=== PATIENT | male | born 1985 | race Caucasian/White ===

== ENCOUNTER 2020-08-21 09:25 | Emergency (ER) | payer BC, SELFPAY ==
--- NOTE | ~2020-08-21 | XR_ITS ---
XR wrist RT 2V DATE: 08/21/2020 09:47 INDICATION: Laceration and sheath metal. Rule out foreign body TECHNIQUE: AP and lateral views COMPARISON: None FINDINGS: There is evidence of a soft tissue laceration along the medial aspect of the distal forearm ; there is no associated radiopaque foreign body. No fracture or dislocation, periosteal reaction or bone destruction. IMPRESSION: Distal forearm medial laceration; no radiopaque foreign body Reviewed, dictated and finalized at location B. CAL TECH
[2020-08-21 09:30] VITALS: BP 104/61; PULSE 96; RESP 20; TEMP 36.3; O2SAT 97
--- NOTE | 2020-08-21 09:37 | ED.GENADULT ---
HPI - General Adult General Chief complaint: Wound/Laceration Stated complaint: CUT HAND Source: patient Mode of arrival: ambulatory Limitations: no limitations History of Present Illness HPI narrative: Jacinto is a previously healthy 34M that presented to the ED with a laceration on his right wrist 1 hour prior. He was working with sheet metal when he had and accident and cut the medial side of his wrist. No paralysis or numbness reported. He had a tetanus booster last year. He has no other concerns. Related Data Home Medications Medication Instructions Recorded Confirmed No Home Medications 08/21/20 08/21/20 Allergies Allergy/AdvReac Type Severity Reaction Status Date / Time phenobarbital AdvReac Unknown Verified 08/21/20 10:19 Review of Systems Constitutional: Constitutional: Reports no additional constitutional complaints Eyes: Eyes: Reports no additional eye complaints ENT: Reports system reviewed and no additional complaints, except as documented Cardiovascular: Cardiovascular: Reports no additional cardiovascular complaints Respiratory: Respiratory: Reports no additional respiratory complaints Gastrointestinal: Gastrointestinal: Reports no additional gastrointestinal complaints Genitourinary: Genitourinary: Reports no additional male genitourinary complaints Musculoskeletal: Musculoskeletal: Reports no additional musculoskeletal complaints Integumentary/Breasts: Skin/Breast: Reports as per HPI Neurologic: Reports system reviewed and no additional complaints, except as documented Psychiatric: Psychiatric: Reports no additional psychiatric complaints Endocrine: Endocrine: Reports no additional endocrine complaints Hematologic/Lymphatic: Hematologic/Lymphatic: Reports no additional hematologic/lymphatic complaints Allergic/Immunologic: Allergic/Immunologic: Reports no additional allergic/immunologic complaints Exam Const: General: no acute distress and alert Orientation/consciousness: patient oriented x3 Limitations: No altered mental status HENMT: Head: normal to inspection Other: atraumatic Eyes: Conjunctivae: conjunctivae normal Pupils: Equal, round and reactive pupils present Neck: Neck: normal visual inspection Chest: Chest palpation & inspection: normal inspection of the chest Resp: Effort & Inspection: normal respiratory effort Auscultation: clear to auscultation bilaterally Cardio: Rate: regular rate Skin: General skin exam: normal color Rashes: no rashes Other: 3 cm L-shaped laceration on the medial side of the right wrist into the sub cutaneous tissue Neuro: General: patient oriented x3 and moves all extremities Other: Has sensation and is able to move his hand and all digits Extrem: General: normal to inspection Other: normal capillary refill in the right hands Psych: Mental Status: mental status grossly normal Course Course Emergency Course: Jacinto was evaluated and given toradol for the pain. XR wrist RT 2V DATE: 08/21/2020 09:47 INDICATION: Laceration and sheath metal. Rule out foreign body TECHNIQUE: AP and lateral views COMPARISON: None FINDINGS: There is evidence of a soft tissue laceration along the medial aspect of the distal forearm; there is no associated radiopaque foreign body. No fracture or dislocation, periosteal reaction or bone destruction. IMPRESSION: Distal forearm medial laceration; no radiopaque foreign body laceration repaired as below. Vital Signs Vital signs: Vital Signs Temperature 97.3 F L 08/21/20 09:30 Pulse Rate 96 08/21/20 09:30 Respiratory Rate 20 08/21/20 09:30 Blood Pressure 104/61 08/21/20 09:30 Pulse Oximetry 97 08/21/20 09:30 Temperature 97.3 F L 08/21/20 09:30 Pulse Rate 96 08/21/20 09:30 Respiratory Rate 20 08/21/20 09:30 Blood Pressure 104/61 08/21/20 09:30 Pulse Oximetry 97 08/21/20 09:30 Procedures Laceration Laceration 1: Date: 08/21/20 Time: 10:08
== END 2020-08-21 10:30 | disposition home or self-care (01) ==
PROVIDERS: Emergency Provider Family Medicine; PCP Internal Medicine
DX: S61.511A Laceration without foreign body of right wrist, initial encounter (principal); W45.8XXA Other foreign body or object entering through skin, initial encounter
CPT/HCPCS: 12002; 73100; 99282; 99283

== ENCOUNTER 2021-06-02 20:48 | Emergency (ER) | payer BC, SELFPAY ==
--- NOTE | ~2021-06-02 | CT_ITS ---
EXAMINATION: CT abdomen pelvis w con EXAM DATE: 06/03/2021 00:32 INDICATION: Left lower quadrant pain. TECHNIQUE: Spiral CT of the abdomen and pelvis was performed following intravenous injection of 100 m L Omnipaque 350. Axial, coronal and sagittal images of the abdomen and pelvis were reviewed. The do se-length product (DLP) for this examination was 599.04 mGy-cm. The exposure was tailored according to patient size (auto mA exposure control), and iterative reconstruction (ASIR) was used as additiona l dose reduction technique. There is no prior study for comparison. FINDINGS: The liver, spleen, adrenal glands and pancreas are unremarkable. Gallbladder is unremarkab le. No biliary obstruction. Portal and splenic veins are patent. Kidneys enhance symmetrically. T here is no hydronephrosis. The prostate is unremarkable. The bladder is unremarkable. There is no retroperitoneal or pelvic lymphadenopathy. Scattered colonic diverticulosis. Moderate amount of inflammation along the descending colon, appeara nce consistent with acute uncomplicated diverticulitis. The appendix is normal. The stomach and smal l bowel are unremarkable. There is expected amount of colonic stool. No free intraperitoneal gas. The heart is normal in size. There are no pericardial or pleural effusions. The lung bases are un remarkable. There are no osteoblastic or osteolytic lesions identified. There is right femoral intra medullary landy. IMPRESSION: Acute uncomplicated descending colonic diverticulitis. Reviewed, dictated and finalized at location D.
[2021-06-02 21:06] VITALS: BP 125/63; PULSE 97; RESP 18; TEMP 37.7; O2SAT 98
[2021-06-02 21:19] LABS: Basophils Percent Auto 0.3 % (0.2-1.2); Hemoglobin 14.4 g/dL (14.0-18.0); Immature Granulocyte Absolute 0.02 K/mm3 (0.00-0.031); Immature Granulocyte Percent A 0.3 % (0-0.5); Lymphocytes Absolute Auto 0.84 K/mm3 (0.9-3.2); Lymphocytes Percent Auto 10.5 % (18.3-44.2); Mean Corpuscular HGB Conc 35.1 g/dl (32-36); Mean Corpuscular Hemoglobin 31.2 pg (26-34); Mean Corpuscular Volume 88.9 fl (80-100); Monocytes Percent Auto 12.1 % (2.6-8.5); Neutrophils Absolute Auto 6.1 K/mm3 (1.3-6.7); Neutrophils Percent Auto 76.8 % (45.5-73.1); Platelet Count Result 193 k/mm3 (150-375); Red Blood Count 4.61 M/mm3 (4.6-6.20); Red Cell Distribution Width 12.2 % (11.5-14.5)
[2021-06-02 21:28] LABS: Alanine Aminotransferase 21 U/L (4-50); Albumin Level 4.4 g/dL (3.5-5.1); Alkaline Phosphatase 69 U/L (38-126); Anion Gap 11 mmol/L (8-16); Aspartate Amino Transferase 28 U/L (17-59); Bilirubin,Total 0.6 mg/dL (0.2-1.3); Blood Urea Nitrogen 9 mg/dL (9-20); Calcium 8.7 mg/dL (8.4-10.2); Carbon Dioxide 23 mmol/L (22-30); Chloride 98 mmol/L (98-107); Estimated CRCL calculation 109 ml/min; Estimated Glomerular Filt Rate > 60; Glucose 123 mg/dL (65-110); Lipase 40 U/L (23-300); Potassium 3.6 mmol/L (3.4-5.0); Sodium 132 mmol/L (137-145)
[2021-06-03 00:28] VITALS: BP 125/57; PULSE 77; RESP 18; TEMP 37.7; O2SAT 100
[2021-06-03] MEDS: SODIUM CHLORIDE 0.9% IV 1,000 ML 999 ML IV CONT (00:32)
[2021-06-03] MEDS: KETOROLAC 30 MG/ML VIAL (*BKC) IV PUSH (00:32)
[2021-06-03] MEDS: metroNIDAZOLE 250 MG TABLET 500 MG PO (01:01)
[2021-06-03] MEDS: CIPROFLOXACIN 500 MG TAB PO (01:01)
--- NOTE | 2021-06-03 01:13 | ED.ABDPAIN ---
HPI - Abdominal Pain General Chief Complaint: Abdominal Pain Stated Complaint: lower abdominal pain on Left side Time Seen by Provider: 06/02/21 23:20 History of Present Illness HPI narrative: Patient is a 35-year-old male who presents ER with left-sided abdominal pain. Ongoing for 24 hours. Increasing in discomfort. Developed subjective fevers today. Radiates into his left lower quadrant into his left flank. No urinary frequency or urgency or dysuria. Reports he felt like he was constipated and took MiraLAX which then resulted in diarrhea. Has not had similar symptoms previously. No reported alleviating factors. Review of Systems Review of Systems: All systems reviewed & are unremarkable except as noted in HPI and below Constitutional: Constitutional: Denies chills, Reports fatigue and Reports fever(s) ENT: Denies nasal congestion and Denies sore throat Cardiovascular: Cardiovascular: Denies chest pain, Denies rapid heart rate and Denies radiating jaw, neck or arm pain Respiratory: Respiratory: Denies cough, Denies dyspnea and Denies wheezing Gastrointestinal: Gastrointestinal: Reports abdominal pain, Reports constipation, Reports diarrhea, Denies nausea and Denies vomiting Genitourinary: Genitourinary: Denies dysuria and Denies urinary frequency PMFSH Past Medical History Medical History (Updated 06/03/21 @ 01:18 by Baldo Pina MD) Healthy adult Surgical History Surgical History (Updated 06/03/21 @ 01:18 by Baldo Pina MD) No pertinent past surgical history Social History Social History (Updated 06/03/21 @ 01:18 by Baldo Pina MD) Smoking status: Never smoker Exam Narrative: GENERAL: Well-appearing, well-nourished, and in no acute distress. HEAD: Normocephalic, atraumatic. CHEST: Clear to auscultation. No respiratory distress. HEART: Regular rate and rhythm. Normal peripheral pulses. ABDOMEN: Soft, moderate tenderness left lower quadrant, nondistended, normal active bowel sounds. Mild left CVA tenderness. EXTREMITIES: Normal range of motion. No edema. SKIN: Warm, dry, no rash. NEURO: Alert and oriented x3. PSYCH: Normal mood and affect. Course Course Emergency Course: Patient informed of diagnosis and treatment plan. Received first dose of antibiotic while in the ER. Will give a work note. Recommend follow-up with PCP. Discussed return precautions. Vital Signs Vital signs: Vital Signs Temperature 100 F H 06/02/21 21:06 Pulse Rate 97 06/02/21 21:06 Respiratory Rate 18 06/02/21 21:06 Blood Pressure 125/63 06/02/21 21:06 Pulse Oximetry 98 06/02/21 21:06 Temperature 100 F H 06/03/21 00:28 Pulse Rate 77 06/03/21 00:28 Respiratory Rate 18 06/03/21 00:28 Blood Pressure 125/57 L 06/03/21 00:28 Pulse Oximetry 100 06/03/21 00:28 MDM - Abdominal Pain Lab Data Result diagrams: 06/02/21 21:12 06/02/21 21:12 Labs: Lab Results 06/02/21 06/02/21 Range/Units 21:12 21:12 WBC 8.0 (4.5-10.0) K/mm3 RBC 4.61 (4.6-6.20) M/mm3 Hgb 14.4 (14.0-18.0) g/dL Hct 41.0 L (42.0-52.0) % MCV 88.9 (80-100) fl MCH 31.2 (26-34) pg MCHC 35.1 (32-36) g/dl RDW 12.2 (11.5-14.5) % Plt Count 193 (150-375) k/mm3 MPV 9.0 (7.4-10.4) fl Immature Gran % (Auto) 0.3 (0-0.5) % Neut % (Auto) 76.8 H (45.5-73.1) % Lymph % (Auto) 10.5 L (18.3-44.2) % [place] % (Auto) 12.1 H (2.6-8.5) % Eos % (Auto) 0.0 (0-4.4) % Baso % (Auto) 0.3 (0.2-1.2) % Lymph # (Auto) 0.84 L (0.9-3.2) K/mm3 [place] # (Auto) 1.0 H (0.1-0.6) K/mm3 Eos # (Auto) 0.0 (0-0.3) K/mm3 Baso # (Auto) 0.0 (0.0-0.1) K/mm3 Abs Immat Gran (auto) 0.02 (0.00-0.031) K/mm3 Absolute Neuts (auto) 6.1 (1.3-6.7) K/mm3 Absolute Nucleated RBC 0.0 (0.0-0.012) K/mm3 Nucleated RBC % 0.0 (0.0-0.2) % Sodium 132 L (137-145) mmol/L Potassium 3.6 (3.4-5.0) mmol/L Chloride 98 (98-107) mmol/L Carbon Dioxide 23
[2021-06-03 01:43] VITALS: BP 126/78; PULSE 78; RESP 18; O2SAT 100
== END 2021-06-03 01:44 | disposition home or self-care (01) ==
PROVIDERS: Emergency Provider Emergency Medicine; PCP Internal Medicine
DX: K57.32 Diverticulitis of large intestine without perforation or abscess without bleeding (principal)
CPT/HCPCS: 36415; 74177; 80053; 83690; 85025; 96361; 96374; 99284; A9270; J1885; J7030; Q9967

== ENCOUNTER 2021-06-07 18:41 | Emergency (ER) | payer BC, SELFPAY ==
--- NOTE | ~2021-06-07 | XR_ITS ---
EXAMINATION: XR chest 1V portable DATE: 06/07/2021 20:53 INDICATION: Fever. Diverticulitis. COVID-19 positive. TECHNIQUE: A single frontal view of the chest was obtained on 2 radiographs. COMPARISON: Chest 2 views 10/13/2007, CT abdomen and pelvis 06/07/2021 FINDINGS: There are mild airspace opacities in the lower lung zones. No pleural effusion or pneumotho rax. The heart size is normal. There is plate and screw fixation of left clavicle. IMPRESSION: 1. Mild airspace opacities in the lower lung zones, consistent with COVID-19 pneumonia. Reviewed, dictated and finalized at location A. IMPRESSION: 1. Mild airspace opacities in the lower lung zones, consistent with COVID-19 pn eumonia.
--- NOTE | ~2021-06-07 | CT_ITS ---
EXAMINATION: CT abdomen pelvis w con DATE: 06/07/2021 20:07 INDICATION: Left lower quadrant abdominal pain. TECHNIQUE: Computed tomography (CT) of the abdomen and pelvis was performed with 100 mL Omnipaque 350 intravenous contrast. Automated exposure control and iterative reconstruction technique were employe d. The dose-length product was 539.98 mGy-cm. COMPARISON: CT abdomen and pelvis 06/03/2021 FINDINGS: The visualized portions of the lung bases demonstrate patchy airspace and groundglass opaci ties in all lobes. No pleural effusion. The heart size is normal. No pericardial effusion. The liver, gallbladder, spleen, pancreas, adrenal glands, and kidneys are normal. There is fat stranding around a diverticulum of descending colon, consistent with diverticulitis. There are no dilated loops of dexter wel. The appendix is normal. There are no pathologically enlarged lymph nodes. There is no free intra peritoneal fluid. There is landy and screw fixation of right femur. There is mild lumbar spondylosis. IMPRESSION: 1. Acute diverticulitis of descending colon with interval improvement. 2. New multifocal lung disease, consistent with pneumonia. COVID-19 testing is recommended. Reviewed, dictated and finalized at location A.
[2021-06-07 18:49] VITALS: BP 129/64; PULSE 90; RESP 18; TEMP 36.2; O2SAT 99
[2021-06-07 19:06] LABS: Basophils Percent Auto 0.3 % (0.2-1.2); Hematocrit 41.5 % (42.0-52.0); Hemoglobin 14.4 g/dL (14.0-18.0); Immature Granulocyte Absolute 0.01 K/mm3 (0.00-0.031); Immature Granulocyte Percent A 0.3 % (0-0.5); Lymphocytes Absolute Auto 0.58 K/mm3 (0.9-3.2); Lymphocytes Percent Auto 16.7 % (18.3-44.2); Mean Corpuscular HGB Conc 34.7 g/dl (32-36); Mean Corpuscular Hemoglobin 30.8 pg (26-34); Mean Corpuscular Volume 88.7 fl (80-100); Mean Platelet Volume 8.9 fl (7.4-10.4); Monocytes Absolute Auto 0.2 K/mm3 (0.1-0.6); Monocytes Percent Auto 6.9 % (2.6-8.5); Neutrophils Absolute Auto 2.6 K/mm3 (1.3-6.7); Neutrophils Percent Auto 75.8 % (45.5-73.1); Platelet Count Result 189 k/mm3 (150-375); Red Blood Count 4.68 M/mm3 (4.6-6.20); Red Cell Distribution Width 11.9 % (11.5-14.5); White Blood Count 3.5 K/mm3 (4.5-10.0)
[2021-06-07 19:16] LABS: Alanine Aminotransferase 29 U/L (4-50); Albumin Level 4.1 g/dL (3.5-5.1); Alkaline Phosphatase 68 U/L (38-126); Anion Gap 9 mmol/L (8-16); Aspartate Amino Transferase 47 U/L (17-59); Bilirubin,Total 0.4 mg/dL (0.2-1.3); Blood Urea Nitrogen 8 mg/dL (9-20); Calcium 8.5 mg/dL (8.4-10.2); Carbon Dioxide 24 mmol/L (22-30); Chloride 102 mmol/L (98-107); Estimated CRCL calculation 122 ml/min; Estimated Glomerular Filt Rate > 60; Glucose 119 mg/dL (65-110); Lipase 68 U/L (23-300); Potassium 3.6 mmol/L (3.4-5.0); Sodium 135 mmol/L (137-145)
--- NOTE | 2021-06-07 19:19 | PC.NURSE ---
ambulatory to ed. c/o being dx c diverticulitis earlier this week here. states has been 'having trouble controlling my fever' and reports last took 600 mg ibuprofen approx. 1630. reports on abx but can't remember names. reports improvement in pain to left flank/side area that was worse on initial visit. on monitor. call light in reach.
--- NOTE | 2021-06-07 19:31 | ED.FEVER ---
HPI - Fever General Chief Complaint: Fever Stated Complaint: fever Time Seen by Provider: 06/07/21 19:15 Source: RN notes reviewed History of Present Illness HPI Narrative: Patient presents to emergency department from home for fever. Patient states he was seen here on 06/02 and diagnosed with diverticulitis at that time he was started on Cipro and Flagyl which she has been taking he states he continues have pain in the left lower quadrant and states has been having fevers up to 100.4 which have not been relieved he states he last took ibuprofen 4 hours ago he denies taking Tylenol he states he has had nausea as well with the symptoms he denies any chest pain shortness of breath or any other symptoms Related Data Allergies Allergy/AdvReac Type Severity Reaction Status Date / Time phenobarbital AdvReac Unknown Verified 06/07/21 19:15 Review of Systems Review of Systems: Gen.: Reports fever Eyes: Denies eye pain or visual change ENT: Denies congestion Respiratory: Denies shortness of breath or cough CV: Denies chest pain or palpitations GI: See HPI Musculoskeletal: Denies back pain or muscle pain Neuro: Denies numbness, tingling, weakness or focal weakness Skin: Denies rash Except as documented, all other systems reviewed and negative [facility] Past Medical History Medical History (Updated 06/07/21 @ 21:27 by Nato Chase DO) Patient denies significant medical history Social History Social History (Updated 06/07/21 @ 19:33 by Nato Chase DO) Smoking status: Never smoker Exam Narrative: APPEARANCE: No acute distress, nontoxic, resting in bed HEENT: Normocephalic, atraumatic, OMM RESPIRATORY: No respiratory distress, clear to auscultation bilaterally with no rhonchi wheezing or rales CARDIOVASCULAR: RRR s murmur ABDOMINAL: Soft nondistended tender palpation left lower quadrant no tenderness left upper quadrant and right upper quadrant right lower quadrant no rebound or guarding MUSCULOSKELETAl: Moves all extremities. No clubbing, cyanosis or edema. NEURO: Awake and alert. Following commands, speech normal, no focal deficits SKIN:: Warm, dry. Normal Color PSYCHIATRIC: Normal affect/mood Course Course Emergency Course: Following CT scan discussed with patient his fevers did start 2 days ago he states he did not receive the Covid vaccination Discussed with patient results of workup and diagnosis. Discussed need for follow-up with primary care, proper use of medication, and reasons to return to the emergency department. Patient understands and agrees to current treatment plan Vital Signs Vital signs: Vital Signs Temperature 97.1 F L 06/07/21 18:49 Pulse Rate 90 06/07/21 18:49 Respiratory Rate 18 06/07/21 18:49 Blood Pressure 129/64 06/07/21 18:49 Pulse Oximetry 99 06/07/21 18:49 Temperature 97.1 F L 06/07/21 18:49 Pulse Rate 82 06/07/21 20:08 Respiratory Rate 20 06/07/21 20:08 Blood Pressure 116/73 06/07/21 20:08 Pulse Oximetry 97 06/07/21 20:08 MDM - Fever MDM Narrative Medical decision making narrative: Patient presented with history of diverticulitis 2 days of antibiotics left he has been taking his antibiotics CT scan shows diverticulitis is improving but showed chest findings consistent with COVID-19 rapid swab was obtained he is Covid positive pulse ox remained stable in the ED discussed with patient will discharge to follow-up as an outpatient Lab Data Result diagrams: 06/07/21 18:56 06/07/21 18:56 Labs: Lab Results 06/07/21 06/07/21 06/07/21 Range/Units 18:56 18:56 19:49 WBC 3.5 L (4.5-10.0) K/mm3 RBC 4.68 (4.6-6.20) M/mm3 Hgb 14.4 (14.0-18.0) g/dL Hct 41.5 L (42.0-52.0) % MCV 88.7 (80-100) fl MCH 30.8 (26-34) pg MCHC 34.7 (32-36) g/dl RDW 11.9 (11.5-14.5) % Plt Count 189 (150-375) k/mm3 MPV 8.9 (7.4-10.4) fl Immature Gran % (Auto) 0.3 (0-0.5) % Neut % (Auto) 75.8 H
[2021-06-07 20:08] VITALS: BP 116/73; PULSE 82; RESP 20; O2SAT 97
[2021-06-07] MEDS: SODIUM CHLORIDE 0.9% IV 1,000 ML 999 ML IV CONT (20:27)
[2021-06-07 20:29] LABS: Lactic Acid Reflex 0.8 mmol/L (0.7-2.1)
[2021-06-07 20:33] VITALS: PULSE 86; RESP 12; O2SAT 98
[2021-06-07 20:45] VITALS: PULSE 83; RESP 11; O2SAT 99
[2021-06-07 20:46] VITALS: BP 120/74; PULSE 90; RESP 17; O2SAT 98
[2021-06-07 20:48] VITALS: PULSE 84; RESP 16; O2SAT 98
[2021-06-07 20:48] LABS: EDCOVIDSCREEN Positive (Negative)
== END 2021-06-07 21:52 | disposition home or self-care (01) ==
PROVIDERS: General Practice; Emergency Provider Emergency Medicine; PCP Internal Medicine
DX: U07.1 COVID-19 (principal); K57.32 Diverticulitis of large intestine without perforation or abscess without bleeding; R91.8 Other nonspecific abnormal finding of lung field
CPT/HCPCS: 36415; 71045; 74177; 80053; 83605; 83690; 85025; 87040; 87426; 96360; 99284; C9803; J7030; Q9967

== ENCOUNTER 2021-06-09 14:04 | Inpatient (IN) | payer BC, SELFPAY ==
--- NOTE | ~2021-06-09 | XR_ITS ---
EXAMINATION: XR chest 1V portable DATE: 06/09/2021 14:52 INDICATION: Fever. COVID-19 positive. TECHNIQUE: A single frontal view of the chest was obtained on 2 radiographs. COMPARISON: Chest single view 06/07/2021, CT abdomen and pelvis 06/07/2021 FINDINGS: There are mild patchy airspace opacities in the right mid and lower lung zones and all left lung zones with a peripheral predominance. No pleural effusion or pneumothorax. The heart size is no rmal. There is plate and screw fixation of left clavicle. IMPRESSION: 1. Worsened diffuse lung disease, consistent with COVID-19 pneumonia. Reviewed, dictated and finalized at location A.
[2021-06-09 14:33] VITALS: BP 134/65; PULSE 95; RESP 20; TEMP 37.3; O2SAT 99
[2021-06-09] MEDS: SODIUM CHLORIDE 0.9% IV 1,000 ML 999 ML IV CONT (14:50)
[2021-06-09] MEDS: ACETAMINOPHEN 500 MG TABLET 1000 MG PO (14:52)
[2021-06-09] MEDS: ONDANSETRON INJ 4 MG/2 ML VIAL IV PUSH (14:55)
[2021-06-09 15:02] LABS: HCO3 ABG 19.3 mmol/L (23-29); Oxygen Content ABG 19.2 %vol (16.0-22.0); Oxygen Saturation ABG 96.1 % (95-97); Oxyhemoglobin 95.6 % (94-100); PCO2 ABG 22.5 mmHg (35-45); PO2 ABG 77.6 mmHg (80-90); Total Hemoglobin 14.3 g/dL (12.0-18.0); pH ABG 7.55 (7.35-7.45)
[2021-06-09 15:03] LABS: Device ROOM AIR; Hematocrit 39.3 % (40.0-54.0); Hemoglobin 13.9 g/dL (14.0-18.0); Mean Corpuscular HGB Conc 35.4 g/dL (32.0-36.0); Mean Corpuscular Hemoglobin 31.1 pg (27.0-31.0); Mean Corpuscular Volume 87.9 fL (78.0-102.0); Modified Allen's Test Pass; Platelet Count Result 195 K/mm3 (150-420); Red Blood Count 4.47 M/mm3 (4.70-6.10); Red Cell Distribution Width 11.9 % (11.6-14.4); Site Drawn LEFT RADIAL; White Blood Count 3.8 K/mm3 (4.8-10.8)
[2021-06-09 15:19] LABS: Alanine Aminotransferase 37 U/L (16-63); Albumin Level 3.3 g/dL (3.4-5.0); Alkaline Phosphatase 56 U/L (46-116); Anion Gap 9 mmol/L (8-16); Aspartate Amino Transferase 35 U/L (15-37); Bilirubin,Total 0.3 mg/dL (0.00-1.00); Blood Urea Nitrogen 8 mg/dL (7-18); Carbon Dioxide 27 mmol/L (21-32); Chloride 102 mmol/L (98-108); Estimated CRCL calculation 96 ml/min; Estimated Glomerular Filt Rate > 60; Glucose 121 mg/dL (70-99); Osmolality Calculated 285 mOsm/kg (285-295); Potassium 3.5 mmol/L (3.5-5.1); Sodium 138 mmol/L (136-145)
[2021-06-09 15:30] LABS: Influenza Control Valid (Valid)
--- NOTE | 2021-06-09 15:44 | ED.NAVMDI ---
HPI - Nausea/Vomiting/Diarrhea General Chief complaint: Nausea/Vomiting/Diarrhea Stated complaint: vomiting Source: patient Mode of arrival: ambulatory Limitations: no limitations History of Present Illness HPI Narrative: this is a 35-year-old gentleman that was recently diagnosed with COVID approximately 2 days ago while at [facility] and was treated at that time for a diverticulitis with Cipro and Flagyl. The patient continues to have nausea with low-grade fevers with mild shortness of breath cough congestion with no diarrhea constipation no chest pain. The patient has not been vaccinated for COVID and states that he was probably infected while waiting in the emergency department in [facility]. MD elicited complaint: nausea and vomiting Pertinent past history: anorexia Onset (ago): day(s) Description of vomiting: watery Description of diarrhea: watery Associated nausea: Yes Associated abdominal pain: Yes Location of pain: diffuse Pain consistency: constant Severity: moderate Related Data Home Medications Medication Instructions Recorded Confirmed ciprofloxacin HCl 500 mg PO Q12H 06/09/21 06/09/21 hydrocodone-acetaminophen 1 tablet PO Q6H PRN 06/09/21 06/09/21 metronidazole 500 mg PO Q8H 06/09/21 06/09/21 Allergies Allergy/AdvReac Type Severity Reaction Status Date / Time phenobarbital AdvReac Unknown Verified 06/07/21 19:15 Review of Systems Review of Systems: All systems reviewed & are unremarkable except as noted in HPI and below PMFSH Past Medical History Medical History Patient denies significant medical history Social History Social History Smoking status: Never smoker Exam Const: General: no acute distress and alert Orientation/consciousness: patient oriented x3 HENMT: Head: normal to inspection Eyes: Cornea: corneas normal Pupils: Equal, round and reactive pupils present EOM: EOMs intact bilaterally Direct Ophthalmoscopy: no photophobia Chest: Chest palpation & inspection: normal inspection of the chest Resp: Effort & Inspection: normal respiratory effort Auscultation: diminished lung sounds Cardio: Rate: regular rate and tachycardic GI: GI Palp: Yes Soft to palpation and Yes Tenderness to palpation present (GI) Back/Spine/Pelvis: Back: no CVA tenderness Skin: General skin exam: normal color Rashes: no rashes Neuro: General: patient oriented x3, moves all extremities and no meningeal signs Extrem: General: normal to inspection and no pedal edema Psych: Appearance: grossly normal Mental Status: mental status grossly normal Affect: normal affect Course Course Emergency Course: Patient received IV fluids, IV Zofran and chest x-ray read reviewed which shows COVID pneumonia and will admit with observation and treat with remdesivir and dexamethasone. Vital Signs Vital signs: Vital Signs Temperature 37.3 C 06/09/21 14:33 Pulse Rate 95 06/09/21 14:33 Respiratory Rate 20 06/09/21 14:33 Blood Pressure 134/65 06/09/21 14:33 Pulse Oximetry 99 06/09/21 14:33 Temperature 37.3 C 06/09/21 14:33 Pulse Rate 95 06/09/21 14:33 Respiratory Rate 20 06/09/21 14:33 Blood Pressure 134/65 06/09/21 14:33 Pulse Oximetry 99 06/09/21 14:33 MDM - Nausea/Vomiting/Diarrhea Lab Data Result diagrams: 06/09/21 14:55 06/09/21 14:55 Labs: Lab Results 06/09/21 06/09/21 06/09/21 Range/Units 14:55 14:55 14:55 WBC 3.8 L (4.8-10.8) K/mm3 RBC 4.47 L (4.70-6.10) M/mm3 Hgb 13.9 L (14.0-18.0) g/dL Hct 39.3 L (40.0-54.0) % MCV 87.9 (78.0-102.0) fL MCH 31.1 H (27.0-31.0) pg MCHC 35.4 (32.0-36.0) g/dL RDW 11.9 (11.6-14.4) % Plt Count 195 (150-420) K/mm3 MPV 9.0 (8.7-11.0) fl Immature Gran % (Auto) Not Reportable Neut % (Auto) Not Reportable Lymph %
[2021-06-09 15:49] LABS: Band Neutrophils Percent 1 % (0-6); Basophils Percent Manual 0 % (0-1); Eosinophils Percent Manual 0 % (1-6); Lymphocytes Absolute Manual 0.98 K/mm3 (1.1-4.5); Lymphocytes Percent Manual 26 % (18-44); Monocytes Absolute Manual 0.11 K/mm3 (0.1-0.90); Monocytes Percent Manual 3 % (3-9); Neutrophils Absolute Manual 2.69 K/mm3 (1.3-6.7); Neutrophils Percent Manual 70 % (46-73); Total Cells Counted 100
[2021-06-09 15:50] LABS: Platelet Estimate Adequate (Adequate)
[2021-06-09 16:06] VITALS: BP 116/64; PULSE 81; RESP 18; O2SAT 94
[2021-06-09 16:08] LABS: INR 1.1; Prothrombin Time 12.1 Seconds (9.50-12.10)
[2021-06-09 16:20] VITALS: PULSE 84; RESP 18; O2SAT 97
[2021-06-09] MEDS: CIPROFLOXACIN 400 MG/D5W 200ML 200 ML 200 MG IVPB (16:40)
[2021-06-09] MEDS: SODIUM CHLORIDE 0.9% IV 1,000 ML 100 ML IV CONT (16:40)
[2021-06-09 16:45] VITALS: BMI 26.9
--- NOTE | 2021-06-09 17:22 | PC.NURSE ---
Patient admitted to room 212, transferred per self to bed. Patient oriented to room and call light.
[2021-06-09 17:28] VITALS: BP 115/69; PULSE 84; RESP 18; TEMP 36.9; O2SAT 97
[2021-06-09] MEDS: metroNIDAZOLE 500 MG/ISO 100ML 500 MG/100 ML BAG 100 MG IVPB ×2 (18:09→22:20)
[2021-06-09 20:00] VITALS: BP 130/73; PULSE 93; RESP 20; TEMP 37.2; O2SAT 95
[2021-06-09] MEDS: REMDESIVIR 200 MG/NS 250 ML 200 MG/250 ML BAG 250 MG IVPB (20:29)
[2021-06-10] VITALS (8 sets, daily range): BP systolic 105–123; BP diastolic 64–76; PULSE 70–103; RESP 16–22; TEMP 36–37.2; O2SAT 93–98
--- NOTE | 2021-06-10 02:10 | PC.NURSE ---
Completed patient rounding. Patient is sleeping comfortably in bed, without any signs of pain or discomfort.
[2021-06-10] MEDS: ONDANSETRON INJ 4 MG/2 ML VIAL IV PUSH ×3 (03:59→21:47)
[2021-06-10] MEDS: SODIUM CHLORIDE 0.9% IV 1,000 ML 100 ML IV CONT ×2 (04:17→16:39)
[2021-06-10] MEDS: CIPROFLOXACIN 400 MG/D5W 200ML 200 ML 200 MG IVPB ×2 (04:32→16:40)
[2021-06-10 05:50] LABS: Basophils Absolute Auto 0.01 K/mm3 (0.00-0.10); Basophils Percent Auto 0.2 % (0.0-1.0); Hematocrit 36.4 % (40.0-54.0); Hemoglobin 12.5 g/dL (14.0-18.0); Immature Granulocyte Absolute 0.02 K/mm3 (0.00-0.00); Immature Granulocyte Percent A 0.5 % (0.0-0.0); Lymphocytes Absolute Auto 0.63 K/mm3 (1.10-4.50); Lymphocytes Percent Auto 15.6 % (18.0-42.0); Mean Corpuscular HGB Conc 34.3 g/dL (32.0-36.0); Mean Corpuscular Hemoglobin 30.1 pg (27.0-31.0); Mean Corpuscular Volume 87.7 fL (78.0-102.0); Mean Platelet Volume 9.1 fl (8.7-11.0); Monocytes Absolute Auto 0.23 K/mm3 (0.10-0.90); Monocytes Percent Auto 5.7 % (2.0-11.0); Neutrophils Absolute Auto 3.1 K/mm3 (1.7-7.2); Platelet Count Result 185 K/mm3 (150-420); Red Blood Count 4.15 M/mm3 (4.70-6.10); Red Cell Distribution Width 11.7 % (11.6-14.4)
[2021-06-10] MEDS: metroNIDAZOLE 500 MG/ISO 100ML 500 MG/100 ML BAG 100 MG IVPB ×3 (06:03→21:14)
[2021-06-10 06:04] LABS: INR 1.2; Prothrombin Time 12.7 Seconds (9.50-12.10)
[2021-06-10 06:07] LABS: Alanine Aminotransferase 34 U/L (16-63); Albumin Level 2.6 g/dL (3.4-5.0); Alkaline Phosphatase 48 U/L (46-116); Anion Gap 12 mmol/L (8-16); Aspartate Amino Transferase 32 U/L (15-37); Bilirubin,Total 0.3 mg/dL (0.00-1.00); Blood Urea Nitrogen 8 mg/dL (7-18); Calcium 7.3 mg/dL (8.5-10.1); Carbon Dioxide 25 mmol/L (21-32); Chloride 101 mmol/L (98-108); Estimated CRCL calculation 110 ml/min; Estimated Glomerular Filt Rate > 60; Glucose 139 mg/dL (70-99); Osmolality Calculated 286 mOsm/kg (285-295); Potassium 3.4 mmol/L (3.5-5.1); Sodium 138 mmol/L (136-145)
[2021-06-10] MEDS: DEXAMETHASONE SOD PHOS INJ 4 MG/ML VIAL 6 MG IV PUSH (09:26)
--- NOTE | 2021-06-10 09:38 | PM.IMHP ---
H&P: HPI History of Present Illness Date/Time: 06/10/21 09:38 this is a 35-year-old male that presented to emergency department with complaints of fever, nausea and vomiting. Patient does not have any significant past medical history. Patient notes that on 06/02/2021 he was diagnosed with diverticulitis at our facility. I cannot find any notes for visit on that day. He notes that he was given Cipro and Flagyl for diverticulitis and discharged home. He later visited [facility] on 06/07/2021 at that time he tested positive for Covid. He then presented to our ED for nausea vomiting fever and shortness of breath. Patient's vital signs 119/68, 89, 16, 98.3, 95% on room air, WBCs 4.0, hemoglobin 12.5, hematocrit 36.4, platelets 185, sodium 138, potassium 3.5, BUN 8, creatinine 1.03, glucose 121, liver function test within normal limit, chest x-ray indicate Covid pneumonia previous CT of the abdomen indicate diverticulitis. The patient denies SOB, CP, palpitation, extremity numbness, lightheadedness, dizziness, constipation, diarrhea, chills, or fever. Patient continues to complain of nausea with a cough with greenish sputum denies any abdominal pain Observation Time spent 60 minutes Home with self-care disposition Patient has not been vaccinated <LUCÍA Diaz - Last Filed: 06/10/21 12:40> Chief Complaint: Nausea and vomiting <LUCÍA Diaz - Last Filed: 06/10/21 12:40> Review of Systems Review of Systems: A 14 organ system Review of Systems was performed and pertinent positives included in the HPI, otherwise remaining ROS is negative. <LUCÍA Diaz - Last Filed: 06/10/21 12:40> [facility] Past Medical History Medical History: Medical History Patient denies significant medical history <LUCÍA Diaz - Last Filed: 06/10/21 12:40> Social History Social History: Social History (Updated 06/09/21 @ 17:20 by Raisa Bruno RN) Smoking status: Never smoker Alcohol intake: current Drinks per week: 3 (Occasional use) Substance use: current Substance use type: marijuana Other substance usage details: Daily Living arrangements: with family Spiritual care concerns: No <LUCÍA Diaz - Last Filed: 06/10/21 12:40> Meds Home Medications and Allergies Home medications: Home Medications Medication Instructions Recorded Confirmed Type albuterol sulfate 2 puff INHALATION QID PRN #6.7 gm 06/07/21 06/09/21 Rx ciprofloxacin HCl 500 mg PO Q12H 06/09/21 06/09/21 History hydrocodone-acetaminophen 1 tablet PO Q6H PRN 06/09/21 06/09/21 History metronidazole 500 mg PO Q8H 06/09/21 06/09/21 History <LUCÍA Diaz - Last Filed: 06/10/21 12:40> Allergies/Adverse reactions: Allergies Allergy/AdvReac Type Severity Reaction Status Date / Time phenobarbital AdvReac Unknown Verified 06/07/21 19:15 <LUCÍA Diaz - Last Filed: 06/10/21 12:40> Vital Signs Vital Signs - 24 hr 06/09/21 14:33 06/09/21 16:06 06/09/21 16:20 Temperature 99.2 F Pulse Rate 95 81 84 Respiratory Rate 20 18 18 Blood Pressure 134/65 116/64 Pulse Oximetry 99 94 97 06/09/21 17:28 06/09/21 20:00 06/10/21 00:00 Temperature 98.4 F 99.0 F 99.0 F Pulse Rate 84 93 88 Respiratory Rate 18 20 22 H Blood Pressure 115/69 130/73 123/68 Pulse Oximetry 97 95 93 06/10/21 04:00 Temperature 98.3 F Pulse Rate 89 Respiratory Rate 16 Blood Pressure 119/68 Pulse Oximetry 95 <LUCÍA Diaz - Last Filed: 06/10/21 12:40> Exam Narrative: GENERAL: This is a well-nourished, well-developed patient, in no apparent distress. Appears fatigued HEAD: normocephalic, atraumatic. EYES: PERRL. Sclera clear/white. Vision is grossly intact. EARS: External ears normal, auditory canals clear and without drainage, TMs normal without perforation. Hearing grossly intact. NOSE: External nose norm
[2021-06-10] MEDS: REMDESIVIR 100 MG/NS 250 ML 100 MG/250 ML BAG 250 MG IVPB (10:46)
[2021-06-10 11:03] LABS: Lactic Acid Reflex 0.6 mmol/L (0.4-2.0)
[2021-06-11] VITALS: BP 110/68; PULSE 75; RESP 20; TEMP 36.1; O2SAT 94
[2021-06-11] MEDS: SODIUM CHLORIDE 0.9% IV 1,000 ML 100 ML IV CONT ×2 (03:25→17:10)
[2021-06-11 04:00] VITALS: BP 107/65; PULSE 75; RESP 20; TEMP 36.3; O2SAT 94
[2021-06-11] MEDS: CIPROFLOXACIN 400 MG/D5W 200ML 200 ML 200 MG IVPB ×2 (05:21→17:15)
[2021-06-11 05:27] LABS: Hematocrit 36.5 % (40.0-54.0); Hemoglobin 12.7 g/dL (14.0-18.0); Mean Corpuscular HGB Conc 34.8 g/dL (32.0-36.0); Mean Corpuscular Hemoglobin 30.8 pg (27.0-31.0); Mean Corpuscular Volume 88.4 fL (78.0-102.0); Mean Platelet Volume 9.2 fl (8.7-11.0); Platelet Count Result 201 K/mm3 (150-420); Red Blood Count 4.13 M/mm3 (4.70-6.10); Red Cell Distribution Width 11.8 % (11.6-14.4); White Blood Count 6.1 K/mm3 (4.8-10.8)
--- NOTE | 2021-06-11 05:30 | PC.NURSE ---
Pt had approxz 50 ml emesis & sm loose dk brown bm immediately afterward.
[2021-06-11 05:40] LABS: INR 1.2; Prothrombin Time 12.9 Seconds (9.50-12.10)
[2021-06-11 05:42] LABS: Alanine Aminotransferase 37 U/L (16-63); Albumin Level 2.7 g/dL (3.4-5.0); Alkaline Phosphatase 47 U/L (46-116); Anion Gap 8 mmol/L (8-16); Aspartate Amino Transferase 35 U/L (15-37); Bilirubin,Total 0.3 mg/dL (0.00-1.00); Blood Urea Nitrogen 14 mg/dL (7-18); Calcium 7.6 mg/dL (8.5-10.1); Carbon Dioxide 27 mmol/L (21-32); Chloride 106 mmol/L (98-108); Estimated CRCL calculation 113 ml/min; Estimated Glomerular Filt Rate > 60; Glucose 116 mg/dL (70-99); Osmolality Calculated 293 mOsm/kg (285-295); Sodium 141 mmol/L (136-145); Total Protein 5.7 g/dL (6.4-8.2)
[2021-06-11] MEDS: ONDANSETRON INJ 4 MG/2 ML VIAL IV PUSH (05:48)
[2021-06-11] MEDS: metroNIDAZOLE 500 MG/ISO 100ML 500 MG/100 ML BAG 100 MG IVPB ×3 (06:41→21:26)
[2021-06-11 08:00] VITALS: BP 105/62; PULSE 70; RESP 18; TEMP 36.7; O2SAT 95
[2021-06-11] MEDS: DEXAMETHASONE SOD PHOS INJ 4 MG/ML VIAL 6 MG IV PUSH (09:59)
[2021-06-11] MEDS: REMDESIVIR 100 MG/NS 250 ML 100 MG/250 ML BAG 250 MG IVPB (10:54)
[2021-06-11 12:00] VITALS: BP 123/72; PULSE 71; RESP 18; TEMP 36.4; O2SAT 95
--- NOTE | 2021-06-11 13:09 | WPDPN ---
Progress Note: A&P Assessment and Plan (1) COVID-19: Code(s): U07.1 - COVID-19 Status: Acute Assessment and Plan: Chest x-ray indicate Covid pneumonia Patient unvaccinated Covid positive on 06/07/2021 Continue dexamethasone , remdesivir and inhalers (2) Diverticulitis: Code(s): K57.92 - Diverticulitis of intestine, part unspecified, without perforation or abscess without bleeding Status: Acute Assessment and Plan: Imaging from 06/07/2021 indicates . Acute diverticulitis of descending colon with interval improvement. Continue Cipro and Flagyl Advance diet as tolerated CRP3.0 and lactic acid 0.6 Control pain (3) Electrolyte imbalance: Code(s): E87.8 - Other disorders of electrolyte and fluid balance, not elsewhere classified Status: Acute Assessment and Plan: Resolved Hyperkalemia potassium 3.4>4.0 Give supplement to replace (4) Abnormal ABGs: Code(s): R79.81 - Abnormal blood-gas level Status: Acute Assessment and Plan: Secondary to Covid pneumonia Respiratory alkalosis Subjective Date/time seen: 06/11/21 13:09 patient notes that his condition has improved he still has a ill appearance. Patient notes that his abdominal pain has improved and he was able to tolerate ice chips yesterday and is clear liquid diet today.. Patient's diet will be advanced today. The patient denies CP, palpitation, extremity numbness, lightheadedness, dizziness, constipation, diarrhea, chills, or fever. He does complain of soreness to his chest area due to coughing. Review of Systems Review of Systems: A 14 organ system Review of Systems was performed and pertinent positives included in the HPI, otherwise remaining ROS is negative. Exam Narrative: GENERAL: Appears fatigued and ill HEAD: normocephalic, atraumatic. EYES: PERRL. Sclera clear/white. Vision is grossly intact. EARS: External ears normal, auditory canals clear and without drainage, TMs normal without perforation. Hearing grossly intact. NOSE: External nose normal with no obvious nasal discharge, nares without redness, no rhinorrhea. THROAT: Mucous membranes moist, posterior pharynx clear. NECK: Neck supple, non-tender without lymphadenopathy, masses or thyromegaly. CARDIOVASCULAR: Regular rate and rhythm without murmurs, gallops, or rubs. RESPIRATORY: Diminished GASTROINTESTINAL: Abdomen soft, non-tender, nondistended. Bowel sounds are active. No hepato-splenomegaly, or palpable masses. No guarding. SKIN: warm, intact with no suspicious lesions or rash, good texture and turgor. NEURO: awake, alert, and oriented to person, place and time. There were no obvious focal neurologic abnormalities. Steady gait EXTREMITIES: Normal range of motion. No edema. No calf tenderness. Negative Homans sign bilaterally. BACK: Nontender without deformity or crepitance. No flank tenderness. Objective Data Vital Signs Vital Signs: Vital Signs - 24 hr 06/10/21 14:00 06/10/21 16:00 06/10/21 20:00 Temperature 98.0 F 96.8 F L 96.8 F L Pulse Rate 82 77 70 Respiratory Rate 18 20 20 Blood Pressure 122/74 105/67 108/64 Pulse Oximetry 94 95 95 06/10/21 21:58 06/11/21 00:00 06/11/21 04:00 Temperature 96.8 F L 97 F L 97.3 F L Pulse Rate 70 75 75 Respiratory Rate 20 20 20 Blood Pressure 108/64 110/68 107/65 Pulse Oximetry 98 94 94 06/11/21 08:00 Temperature 98.1 F Pulse Rate 70 Respiratory Rate 18 Blood Pressure 105/62 Pulse Oximetry 95 Intake/Output Intake/Output: Intake & Output 06/08/21 06/09/21 06/10/21 06/11/21 23:59 23:59 23:59 23:59 Intake Total 1660 3850 1260 Output Total 1500 600 Balance 1660 2350 660 Meds/Results Medications: Active Medications Generic Name Dose Route Start Last Admin Trade Name Freq PRN Reason Stop Dose Admin Dexamethasone Sodium Phosphate 6 mg 06/10/21 09:00 06/11/21 09:59 Dexamethasone Sod Phos Inj 4 Mg/Ml Vial IV PUSH 06/19/21 09:01 6 mg D
--- NOTE | 2021-06-11 13:42 | PC.NURSE ---
!#:21 p.m. Mr. Malloy was changed from observation to In patient.
[2021-06-11] MEDS: BENZONATATE 100 MG CAPSULE 200 MG PO ×2 (14:01→17:15)
[2021-06-11] MEDS: guaiFENesin 12 HR 600 MG TABCR 1200 MG PO ×2 (14:01→21:27)
[2021-06-11 16:00] VITALS: BP 119/77; PULSE 82; RESP 16; TEMP 36; O2SAT 93
--- NOTE | 2021-06-11 19:02 | PC.NURSE ---
pt up to shower, belongings brought in from home, wallet given to didier
[2021-06-11 20:00] VITALS: BP 114/66; PULSE 74; RESP 16; TEMP 36.4; O2SAT 94
[2021-06-11] MEDS: traZODone HCL 50 MG TABLET PO (21:28)
[2021-06-12 00:10] VITALS: BP 111/70; PULSE 76; RESP 18; TEMP 36.3; O2SAT 94
--- NOTE | 2021-06-12 00:28 | PC.NURSE ---
Pt resting when entering pt room for assessment. Noted blood in IV tubing line, and IV site infiltrated. IV site pulled and new started in Rt. wrist c 20g. Pt denies any c/o at this time, BS noted clear but sl diminished, VSS, call collins in reach.
[2021-06-12] MEDS: SODIUM CHLORIDE 0.9% IV 1,000 ML 100 ML IV CONT (03:22)
[2021-06-12 03:40] VITALS: BP 111/60; PULSE 74; RESP 20; TEMP 36.1; O2SAT 94
--- NOTE | 2021-06-12 04:30 | PC.NURSE ---
Pt sleeping, uses urinal per self, RR even and nonlabored, pt wakens easily when entering room. No c/o.
[2021-06-12] MEDS: CIPROFLOXACIN 400 MG/D5W 200ML 200 ML 200 MG IVPB (04:40)
[2021-06-12 05:31] LABS: Hematocrit 36.5 % (40.0-54.0); Hemoglobin 12.6 g/dL (14.0-18.0); Mean Corpuscular HGB Conc 34.5 g/dL (32.0-36.0); Mean Corpuscular Hemoglobin 30.4 pg (27.0-31.0); Mean Platelet Volume 8.8 fl (8.7-11.0); Platelet Count Result 211 K/mm3 (150-420); Red Blood Count 4.15 M/mm3 (4.70-6.10); Red Cell Distribution Width 11.8 % (11.6-14.4); White Blood Count 5.7 K/mm3 (4.8-10.8)
[2021-06-12 05:46] LABS: INR 1.2; Prothrombin Time 13.1 Seconds (9.50-12.10)
[2021-06-12] MEDS: metroNIDAZOLE 500 MG/ISO 100ML 500 MG/100 ML BAG 100 MG IVPB ×2 (05:55→14:38)
[2021-06-12 06:07] LABS: Alanine Aminotransferase 40 U/L (16-63); Albumin Level 2.6 g/dL (3.4-5.0); Alkaline Phosphatase 47 U/L (46-116); Anion Gap 9 mmol/L (8-16); Aspartate Amino Transferase 33 U/L (15-37); Bilirubin,Total 0.3 mg/dL (0.00-1.00); Blood Urea Nitrogen 11 mg/dL (7-18); CRP 1.4 mg/dL (0.0-0.9); Calcium 7.7 mg/dL (8.5-10.1); Carbon Dioxide 26 mmol/L (21-32); Chloride 106 mmol/L (98-108); Estimated CRCL calculation 117 ml/min; Estimated Glomerular Filt Rate > 60; Glucose 147 mg/dL (70-99); Osmolality Calculated 294 mOsm/kg (285-295); Potassium 3.7 mmol/L (3.5-5.1); Sodium 141 mmol/L (136-145); Total Protein 5.7 g/dL (6.4-8.2)
[2021-06-12 06:12] LABS: Lactic Acid Reflex 1.1 mmol/L (0.4-2.0)
[2021-06-12 08:00] VITALS: BP 110/60; PULSE 72; RESP 20; TEMP 36.4; O2SAT 94
[2021-06-12] MEDS: guaiFENesin 12 HR 600 MG TABCR 1200 MG PO ×2 (10:03→21:46)
[2021-06-12] MEDS: DEXAMETHASONE SOD PHOS INJ 4 MG/ML VIAL 6 MG IV PUSH (10:03)
[2021-06-12] MEDS: BENZONATATE 100 MG CAPSULE 200 MG PO ×3 (10:04→18:15)
--- NOTE | 2021-06-12 10:12 | WPDPN ---
Progress Note: A&P Assessment and Plan (1) COVID-19: Code(s): U07.1 - COVID-19 Status: Acute Assessment and Plan: Chest x-ray indicate Covid pneumonia Patient unvaccinated Covid positive on 06/07/2021 Continue dexamethasone , remdesivir and inhalers (2) Diverticulitis: Code(s): K57.92 - Diverticulitis of intestine, part unspecified, without perforation or abscess without bleeding Status: Acute Assessment and Plan: Imaging from 06/07/2021 indicates . Acute diverticulitis of descending colon with interval improvement. Continue Cipro and Flagyl Advance diet as tolerated CRP3.0 >1.4 and lactic acid 0.6 Control pain (3) Electrolyte imbalance: Code(s): E87.8 - Other disorders of electrolyte and fluid balance, not elsewhere classified Status: Acute Assessment and Plan: Resolved Hyperkalemia potassium 3.4>4.0>3.7 Give supplement to replace (4) Abnormal ABGs: Code(s): R79.81 - Abnormal blood-gas level Status: Acute Assessment and Plan: Secondary to Covid pneumonia Respiratory alkalosis Subjective Date/time seen: 06/12/21 10:12 patient continues to have ill appearance he also admits that he continues to be weak and fatigued and discomfort to his chest due to excessive coughing after occasional shortness of breath. He did not sleep well overnight. But he was able to tolerate his regular diet. patient lives at home along with his 14-year-old daughter and would prefer to stay an additional night. Patient was taken additional night for treatment of remdesivir. Make arranges with his mother to care for him at home. The patient denies CP, palpitation, extremity numbness, lightheadedness, dizziness, constipation, diarrhea, chills, or fever. Review of Systems Review of Systems: A 14 organ system Review of Systems was performed and pertinent positives included in the HPI, otherwise remaining ROS is negative. Exam Narrative: GENERAL: Appears fatigued and ill HEAD: normocephalic, atraumatic. EYES: PERRL. Sclera clear/white. Vision is grossly intact. EARS: External ears normal, auditory canals clear and without drainage, TMs normal without perforation. Hearing grossly intact. NOSE: External nose normal with no obvious nasal discharge, nares without redness, no rhinorrhea. THROAT: Mucous membranes moist, posterior pharynx clear. NECK: Neck supple, non-tender without lymphadenopathy, masses or thyromegaly. CARDIOVASCULAR: Regular rate and rhythm without murmurs, gallops, or rubs. RESPIRATORY: Diminished GASTROINTESTINAL: Abdomen soft, non-tender, nondistended. Bowel sounds are active. No hepato-splenomegaly, or palpable masses. No guarding. SKIN: warm, intact with no suspicious lesions or rash, good texture and turgor. NEURO: awake, alert, and oriented to person, place and time. There were no obvious focal neurologic abnormalities. Steady gait EXTREMITIES: Normal range of motion. No edema. No calf tenderness. Negative Homans sign bilaterally. BACK: Nontender without deformity or crepitance. No flank tenderness. Objective Data Vital Signs Vital Signs: Vital Signs - 24 hr 06/11/21 12:00 06/11/21 16:00 06/11/21 20:00 Temperature 97.6 F 96.8 F L 97.6 F Pulse Rate 71 82 74 Respiratory Rate 18 16 16 Blood Pressure 123/72 119/77 114/66 Pulse Oximetry 95 93 94 06/12/21 00:10 06/12/21 03:40 06/12/21 08:00 Temperature 97.4 F L 97 F L 97.6 F Pulse Rate 76 74 72 Respiratory Rate 18 20 20 Blood Pressure 111/70 111/60 110/60 Pulse Oximetry 94 94 94 Intake/Output Intake/Output: Intake & Output 06/09/21 06/10/21 06/11/21 06/12/21 23:59 23:59 23:59 23:59 Intake Total 1660 3850 3210 2200 Output Total 1500 2100 1100 Balance 1660 2350 1110 1100 Meds/Results Medications: Active Medications Generic Name Dose Route Start Last Admin Trade Name Freq PRN Reason Stop Dose Admin Acetaminophen 650 mg 06/11/21 13:14 Acetaminophen 325 Mg T
[2021-06-12 12:00] VITALS: BP 112/72; PULSE 72; RESP 18; TEMP 36.6; O2SAT 94
[2021-06-12] MEDS: REMDESIVIR 100 MG/NS 250 ML 100 MG/250 ML BAG 250 MG IVPB (12:56)
[2021-06-12 16:00] VITALS: BP 122/74; PULSE 68; RESP 18; TEMP 36.1; O2SAT 95
--- NOTE | 2021-06-12 17:50 | PC.NURSE ---
notified that IV was out and patient was still on Ciprofloxacin. New order for Ciprofloxacin 500 mg p.o. Q12H.
[2021-06-12 20:00] VITALS: BP 124/70; PULSE 76; RESP 20; TEMP 36; O2SAT 96
[2021-06-12] MEDS: CIPROFLOXACIN 500 MG TAB PO (21:45)
[2021-06-12] MEDS: traZODone HCL 50 MG TABLET PO (21:46)
[2021-06-12] MEDS: metroNIDAZOLE 250 MG TABLET 500 MG PO (21:46)
[2021-06-13] VITALS: BP 112/63; PULSE 62; RESP 20; TEMP 36.2; O2SAT 98
[2021-06-13 04:00] VITALS: BP 112/63; PULSE 54; RESP 18; TEMP 36.2; O2SAT 95
[2021-06-13 05:20] LABS: Hemoglobin 14.6 g/dL (14.0-18.0); Mean Corpuscular Volume 88.5 fL (78.0-102.0); Mean Platelet Volume 9.3 fl (8.7-11.0); Platelet Count Result 275 K/mm3 (150-420); Red Blood Count 4.86 M/mm3 (4.70-6.10); Red Cell Distribution Width 11.8 % (11.6-14.4); White Blood Count 6.5 K/mm3 (4.8-10.8)
[2021-06-13 05:32] LABS: INR 1.2; Prothrombin Time 12.5 Seconds (9.50-12.10)
[2021-06-13 05:39] LABS: Alanine Aminotransferase 53 U/L (16-63); Alkaline Phosphatase 56 U/L (46-116); Anion Gap 8 mmol/L (8-16); Aspartate Amino Transferase 37 U/L (15-37); Bilirubin,Total 0.5 mg/dL (0.00-1.00); Blood Urea Nitrogen 11 mg/dL (7-18); CRP 0.7 mg/dL (0.0-0.9); Calcium 8.3 mg/dL (8.5-10.1); Carbon Dioxide 29 mmol/L (21-32); Chloride 106 mmol/L (98-108); Estimated CRCL calculation 106 ml/min; Estimated Glomerular Filt Rate > 60; Glucose 115 mg/dL (70-99); Magnesium 2.3 mg/dL (1.8-2.4); Osmolality Calculated 296 mOsm/kg (285-295); Potassium 4.1 mmol/L (3.5-5.1); Sodium 143 mmol/L (136-145)
[2021-06-13 05:46] LABS: Lactic Acid Reflex 1.4 mmol/L (0.4-2.0)
[2021-06-13] MEDS: metroNIDAZOLE 250 MG TABLET 500 MG PO (05:53)
--- NOTE | 2021-06-13 07:45 | PM.DS ---
DS: Admitting Diagnosis Discharge Date 06/13/2021 Admitting Diagnosis Covid ,diverticulitis DS: Discharge Diagnosis Discharge Diagnosis (1) COVID-19: Code(s): U07.1 - COVID-19 Status: Acute Assessment and Plan: Chest x-ray indicate Covid pneumonia Patient unvaccinated Covid positive on 06/07/2021 Continue dexamethasone , remdesivir and inhalers Discharge Discharged on dexamethasone (2) Diverticulitis: Code(s): K57.92 - Diverticulitis of intestine, part unspecified, without perforation or abscess without bleeding Status: Acute Assessment and Plan: Imaging from 06/07/2021 indicates . Acute diverticulitis of descending colon with interval improvement. Continue Cipro and Flagyl Advance diet as tolerated CRP3.0 >1.4 and lactic acid 0.6 Control pain (3) Electrolyte imbalance: Code(s): E87.8 - Other disorders of electrolyte and fluid balance, not elsewhere classified Status: Acute Assessment and Plan: Resolved Hyperkalemia potassium 3.4>4.0>3.7>4.1 Give supplement to replace (4) Abnormal ABGs: Code(s): R79.81 - Abnormal blood-gas level Status: Acute Assessment and Plan: Secondary to Covid pneumonia Respiratory alkalosis DS: Summary Hospital Course Reason for hospitalization: Nausea vomiting abdominal pain Hospital Course: this is a 35-year-old male that presented to emergency department with complaints of fever, nausea and vomiting. Patient does not have any significant past medical history. Patient notes that on 06/02/2021 he was diagnosed with diverticulitis at our facility. I cannot find any notes for visit on that day. He notes that he was given Cipro and Flagyl for diverticulitis and discharged home. He later visited [facility] on 06/07/2021 at that time he tested positive for Covid. He then presented to our ED for nausea vomiting fever and shortness of breath. Patient will discharge today he has completed his total dose of Cipro and Flagyl he will discharged with dexamethasone and had a couple of days of remdesivir. His situation has much improved he agrees that he is ready for discharge. The patient denies SOB, CP, palpitation, extremity numbness, lightheadedness, dizziness, constipation, diarrhea, chills, or fever. Time spent 60-minute Time Spent with Patient Time attestation: Total time spent providing and/or coordinating discharge services:60 Exam Narrative: GENERAL: Appears fatigued and ill HEAD: normocephalic, atraumatic. EYES: PERRL. Sclera clear/white. Vision is grossly intact. EARS: External ears normal, auditory canals clear and without drainage, TMs normal without perforation. Hearing grossly intact. NOSE: External nose normal with no obvious nasal discharge, nares without redness, no rhinorrhea. THROAT: Mucous membranes moist, posterior pharynx clear. NECK: Neck supple, non-tender without lymphadenopathy, masses or thyromegaly. CARDIOVASCULAR: Regular rate and rhythm without murmurs, gallops, or rubs. RESPIRATORY: Diminished GASTROINTESTINAL: Abdomen soft, non-tender, nondistended. Bowel sounds are active. No hepato-splenomegaly, or palpable masses. No guarding. SKIN: warm, intact with no suspicious lesions or rash, good texture and turgor. NEURO: awake, alert, and oriented to person, place and time. There were no obvious focal neurologic abnormalities. Steady gait EXTREMITIES: Normal range of motion. No edema. No calf tenderness. Negative Homans sign bilaterally. BACK: Nontender without deformity or crepitance. No flank tenderness. DS: Data Data Completed and Pending Labs on day of discharge: Labs from last 24 hours 06/13/21 06/13/21 06/13/21 05:00 05:00 05:00 WBC 6.5 RBC 4.86 Hgb 14.6 Hct 43.0 MCV 88.5 MCH 30.0 MCHC 34.0 RDW 11.8 Plt Count 275 MPV 9.3 PT INR Sodium 143 Potassium 4.1 Chloride 106 Carbon Dioxide 29 Anion Gap 8 BUN 11 Creatinin
[2021-06-13 08:00] VITALS: BP 122/72; PULSE 70; RESP 20; TEMP 36.3; O2SAT 94
[2021-06-13] MEDS: BENZONATATE 100 MG CAPSULE 200 MG PO (08:26)
[2021-06-13] MEDS: CIPROFLOXACIN 500 MG TAB PO (08:26)
[2021-06-13] MEDS: guaiFENesin 12 HR 600 MG TABCR 1200 MG PO (08:26)
--- NOTE | 2021-06-13 11:25 | PC.NURSE ---
Discharged with written/verbal instructions. 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 reminder of safty precautions, use of mask good hand washing. Keep F/U appointment with Dr. Umana 06/23/21 .Brad with good verbal feedback of understanding No questions or concerns noted.
--- NOTE | 2021-06-17 11:10 | PC.NURSE ---
Unable to contact for discharge call back.
== END 2021-06-13 11:15 | disposition home or self-care (01) | DRG 137 ==
LOC: CHSED 15:49 → CHS2ND 16:08
PROVIDERS: Nurse Practitioner; Admitting Provider Emergency Medicine; Emergency Provider Emergency Medicine; PCP Internal Medicine; Visit Provider Emergency Medicine
DX: U07.1 COVID-19 (principal); J12.82 Pneumonia due to coronavirus disease 2019; K57.32 Diverticulitis of large intestine without perforation or abscess without bleeding; E87.3 Alkalosis; E87.8 Other disorders of electrolyte and fluid balance, not elsewhere classified
CPT/HCPCS: 36415; 36600; 71045; 80053; 82805; 83605; 83735; 85025; 85027; 85060; 85610; 86140; 87804; 96361; 96365; 96366; 96367; 96374; 96375; 96376; 99285; A9270; G0378; G0379; J0744; J1100; J2405; J7030

== ENCOUNTER 2021-07-18 10:30 | Outpatient (CLI) | payer BC, SELFPAY ==
--- NOTE | ~2021-07-18 | XR_ITS ---
EXAMINATION: XR chest 2V EXAM DATE: 07/18/2021 11:05 INDICATION: acute abd pain/ diarrhea/ cough/ dyspnea, COVID 06/2021. TECHNIQUE: Frontal and lateral projections of the chest obtained and reviewed. Comparison is made to prior examination from 06/09/2021. FINDINGS: The lungs are clear. There are no pleural effusions. The cardiomediastinal silhouette is within normal limits. There is no pneumothorax suspected. Left clavicular hardware. IMPRESSION: No acute cardiopulmonary findings. Reviewed, dictated and finalized at location B.
[2021-07-18 10:44] LABS: Basophils Absolute Auto 0.05 K/mm3 (0.00-0.10); Basophils Percent Auto 0.7 % (0.0-1.0); Eosinophils Absolute Auto 0.05 K/mm3 (0.02-0.50); Eosinophils Percent Auto 0.7 % (1.0-6.0); Hematocrit 39.6 % (40.0-54.0); Hemoglobin 13.4 g/dL (14.0-18.0); Immature Granulocyte Absolute 0.02 K/mm3 (0.00-0.00); Immature Granulocyte Percent A 0.3 % (0.0-0.0); Lymphocytes Absolute Auto 1.75 K/mm3 (1.10-4.50); Lymphocytes Percent Auto 23.9 % (18.0-42.0); Mean Corpuscular HGB Conc 33.8 g/dL (32.0-36.0); Mean Corpuscular Hemoglobin 30.2 pg (27.0-31.0); Mean Corpuscular Volume 89.4 fL (78.0-102.0); Mean Platelet Volume 9.2 fl (8.7-11.0); Monocytes Absolute Auto 0.49 K/mm3 (0.10-0.90); Monocytes Percent Auto 6.7 % (2.0-11.0); Neutrophils Percent Auto 67.7 % (50.0-70.0); Platelet Count Result 270 K/mm3 (150-420); Red Blood Count 4.43 M/mm3 (4.70-6.10); Red Cell Distribution Width 12.9 % (11.6-14.4); White Blood Count 7.3 K/mm3 (4.8-10.8)
[2021-07-18 10:51] LABS: Add Urine Microscopic? NO; Appearance Urine Clear (Clear); Bilirubin Urine Negative (Negative); Blood Urine Negative (Negative); Color Urine Light Yellow (Yellow); Glucose Urine UA Negative (Negative); Ketones Urine Negative (Negative); Leukocyte Esterase Ur Negative (Negative); Nitrate Urine Negative (Negative); Protein Urine Negative (Negative); Specific Grav Ur 1.025 (1.010-1.020); Urobilinogen Urine 0.2 mg/dL (0.2-1.0); pH Urine 5.5 (5.0-8.0)
[2021-07-18 11:06] LABS: D Dimer 0.56 mg/L (0.19-0.50)
[2021-07-18 11:12] LABS: Lactic Acid 2.2 mmol/L (0.4-2.0)
[2021-07-18 11:28] LABS: Alanine Aminotransferase 61 U/L (16-63); Albumin Level 3.6 g/dL (3.4-5.0); Alkaline Phosphatase 73 U/L (46-116); Anion Gap 10 mmol/L (8-16); Aspartate Amino Transferase 25 U/L (15-37); Bilirubin,Total 0.4 mg/dL (0.00-1.00); Blood Urea Nitrogen 9 mg/dL (7-18); CRP < 0.2 mg/dL (0.0-0.9); Calcium 9.2 mg/dL (8.5-10.1); Carbon Dioxide 27 mmol/L (21-32); Chloride 104 mmol/L (98-108); Estimated Glomerular Filt Rate > 60; Glucose 105 mg/dL (70-99); NT Pro B Type Natriuretic Pept 48 pg/mL (0-125); Osmolality Calculated 290 mOsm/kg (285-295); Potassium 4.5 mmol/L (3.5-5.1); Sodium 141 mmol/L (136-145); Total Protein 6.5 g/dL (6.4-8.2)
[2021-07-18 11:51] LABS: Erythrocyte Sedimentation Rate 20 mm/hr (0-15)
[2021-07-25 01:28] LABS: Calprotectin, Stool 272 mcg/g
[2021-07-28 21:24] LABS: ANCA Screen Negative (Negative); Myeloperoxidase Ab <1.0 AI (<1.0); Proteinase-3 Ab <1.0 AI (<1.0); S cerevisiae Ab (IgG) 9.1 U (<=20.0)
== END 2021-07-18 10:31 | disposition home or self-care (01) ==
LOC: CHSLAB 10:32
PROVIDERS: PCP Internal Medicine; Visit Provider Internal Medicine
DX: R10.9 Unspecified abdominal pain (principal); R19.7 Diarrhea, unspecified; R05.9 Cough, unspecified; R06.00 Dyspnea, unspecified
CPT/HCPCS: 36415; 71046; 80053; 81003; 83605; 83880; 83993; 85025; 85380; 85652; 86021; 86140; 86671; 87086; 87324

== ENCOUNTER 2021-07-18 11:44 | Emergency (ER) | payer BC, SELFPAY ==
--- NOTE | ~2021-07-18 | CT_ITS ---
EXAMINATION: CTA chest PE protocol DATE: 07/18/2021 12:46 INDICATION: Chest pressure, shortness of breath, dyspnea, cough, fever. Positive d-dimer. Recent Covi d infection. TECHNIQUE: Computed tomography angiography (CTA) of the chest was performed with 100 mL Omnipaque-350 intravenous contrast timed to evaluate the pulmonary arteries. Coronal maximum intensity projection 3D-reconstructions were created by the technologist. Automated exposure control and iterative reconst ruction technique were employed. Exam dose: 453.50 mGy-cm total exam DLP. COMPARISON: 07/18/2021 2 view chest FINDINGS: The pulmonary arteries are moderately opacified, without evidence of pulmonary embolism. No thoracic aortic aneurysm or dissection. No hilar or mediastinal mass lesion or lymphadenopathy. Normal heart size. No pericardial or pleural effusion. Scattered minimal patchy groundglass infiltrate or atelectasis of the lungs. No pulmonary consolidati on or pulmonary mass lesion. Normal morphology of the adrenal glands. Included skeletal structures are unremarkable IMPRESSION: No evidence of pulmonary embolism Scattered minimal patchy infiltrate and/or atelectasis Reviewed, dictated and finalized at [facility]. Reviewed, dictated and finalized at location A.
[2021-07-18 12:00] VITALS: BP 124/73; PULSE 86; RESP 18; TEMP 36.7; O2SAT 98
--- NOTE | 2021-07-18 12:10 | ED_ITS ---
HPI - General Adult General Chief complaint: Unspecified Stated complaint: SOB/chest tightness/Dr Dong sent over Time Seen by Provider: 07/18/21 12:10 Source: patient Mode of arrival: ambulatory Limitations: no limitations Related Data Home Medications Medication Instructions Recorded Confirmed hydrocodone-acetaminophen 1 tablet PO Q6H PRN 06/09/21 06/09/21 Allergies Allergy/AdvReac Type Severity Reaction Status Date / Time phenobarbital AdvReac Unknown Verified 06/07/21 19:15 [facility] Past Medical History Medical History Patient denies significant medical history Social History Social History (Updated 06/09/21 @ 17:20 by Raisa Bruno RN) Smoking status: Never smoker Alcohol intake: current Drinks per week: 3 (Occasional use) Substance use: current Substance use type: marijuana Other substance usage details: Daily Spiritual care concerns: No Course Vital Signs Vital signs: Vital Signs Temperature 36.7 C 07/18/21 12:00 Pulse Rate 86 07/18/21 12:00 Respiratory Rate 18 07/18/21 12:00 Blood Pressure 124/73 07/18/21 12:00 Pulse Oximetry 98 07/18/21 12:00 Temperature 36.7 C 07/18/21 12:00 Pulse Rate 86 07/18/21 12:00 Respiratory Rate 18 07/18/21 12:00 Blood Pressure 124/73 07/18/21 12:00 Pulse Oximetry 98 07/18/21 12:00 Medical Decision Making Vital Signs Vital Signs: Vital Signs Temperature 36.7 C 07/18/21 12:00 Pulse Rate 86 07/18/21 12:00 Respiratory Rate 18 07/18/21 12:00 Blood Pressure 124/73 07/18/21 12:00 Pulse Oximetry 98 07/18/21 12:00 Temperature 36.7 C 07/18/21 12:00 Pulse Rate 86 07/18/21 12:00 Respiratory Rate 18 07/18/21 12:00 Blood Pressure 124/73 07/18/21 12:00 Pulse Oximetry 98 07/18/21 12:00 Discharge Plan Discharge Prescriptions: No Action hydrocodone-acetaminophen 5-325 mg tablet 1 tablet PO Q6H PRN (Reason: Pain) RF: 0 benzonatate 100 mg Capsule 200 mg PO TID Qty: 20 RF: 0 guaifenesin [Mucus Relief ER] 600 mg Tablet Extended Release 12hr 1,200 mg PO Q12HR Qty: 30 RF: 0 loperamide 2 mg Capsule 2 mg PO Q8HR PRN (Reason: Diarrhea) Qty: 20 RF: 0 dexamethasone 6 mg tablet 6 mg PO DAILY Qty: 7 RF: 0 albuterol sulfate 90 mcg/actuation HFA aerosol inhaler 2 puff INHALATION QID PRN (Reason: shortness of breath or wheezing) Qty: 6.7 RF: 0
--- NOTE | 2021-07-18 12:56 | ED.SOB ---
HPI - SOB/Dyspnea General Chief Complaint: Unspecified Stated Complaint: SOB/chest tightness/Dr Umana sent over Time Seen by Provider: 07/18/21 12:10 History of Present Illness HPI Narrative: 35-year-old man diagnosed with COVID pneumonia five weeks ago comes in today complaining of shortness of breath, chest pressure, and diarrhea. He was seen at Dr. Umana's office today and had testing today that revealed elevated D-dimer, mild lactic acidosis, and very mild anemia. There is a concern for pulmonary embolus and is here for a CTA of the chest. MD elicited complaint: shortness of breath Pertinent past history: pneumonia Onset (ago): week(s) Context: recent illness Timing: constant Severity: moderate Exacerbating factors: exertion Relieving factors: nothing Associated symptoms: chest pain ( (pressure)), cough and other ( diarrhea) Treatment prior to arrival: none Related Data Home oxygen amount: none Home Medications Medication Instructions Recorded Confirmed hydrocodone-acetaminophen 1 tablet PO Q6H PRN 06/09/21 06/09/21 Allergies Allergy/AdvReac Type Severity Reaction Status Date / Time phenobarbital AdvReac Unknown Verified 07/18/21 12:17 Review of Systems Review of Systems: All systems reviewed & are unremarkable except as noted in HPI and below Constitutional: Constitutional: Denies chills, Reports fatigue, Denies fever(s) and Denies weakness ENT: Denies nasal congestion and Denies sore throat Cardiovascular: Cardiovascular: Reports chest pain and Denies radiating jaw, neck or arm pain Respiratory: Respiratory: Reports cough, Reports dyspnea and Denies wheezing Gastrointestinal: Gastrointestinal: Denies abdominal pain, Reports diarrhea, Denies nausea and Denies vomiting Genitourinary: Genitourinary: Denies hematuria and Denies dysuria Musculoskeletal: Musculoskeletal: Denies back pain, Denies arthralgias and Denies joint swelling Integumentary/Breasts: Skin/Breast: Denies pruritus, Denies erythema and Denies rash Neurologic: Denies vertigo, Denies dizziness, Denies syncope, Denies focal weakness and Denies numbness Hematologic/Lymphatic: Hematologic/Lymphatic: Denies easy bleeding and Denies easy bruising Allergic/Immunologic: Allergic/Immunologic: Denies lip swelling and Denies throat swelling [facility] Past Medical History Medical History (Updated 07/18/21 @ 13:07 by Jorge Chang MD) Diverticulitis Patient denies significant medical history Social History Social History (Updated 06/09/21 @ 17:20 by Raisa Bruno RN) Smoking status: Never smoker Alcohol intake: current Drinks per week: 3 (Occasional use) Substance use: current Substance use type: marijuana Other substance usage details: Daily Spiritual care concerns: No Exam Const: General: healthy appearing, no acute distress and alert Orientation/consciousness: patient oriented x3 Limitations: no limitations HENMT: Head: normal to inspection Ears: external ears normal, TM's normal bilaterally and EAC's normal General nose exam: Normal nares present Face and sinus: normal facial exam Mouth: Yes moist mucous membranes Throat: posterior oropharynx normal Eyes: Conjunctivae: conjunctivae normal Pupils: Equal, round and reactive pupils present EOM: EOMs intact bilaterally Resp: Effort & Inspection: normal respiratory effort, not labored, no retractions and not tachypneic Auscultation: clear to auscultation bilaterally and no wheezes Cardio: Rate: regular rate Rhythm: regular rhythm Heart sounds: no murmurs GI: GI Palp: Yes Soft to palpation and No Tenderness to palpation present (GI) Skin: General skin exam: normal color, no jaundice and no pallor Rashes: no rashes Neuro: General: patient oriented x3, moves all extremities, no focal motor deficits and CN's II-XI intact bilaterally Speech: normal speech Gait exam (Neuro): Normal gait present Extrem: General: normal to inspection and no clubbing, cyan
[2021-07-18 13:22] VITALS: BP 129/69; PULSE 72; RESP 18; O2SAT 96
== END 2021-07-18 13:30 | disposition home or self-care (01) ==
PROVIDERS: Emergency Provider Emergency Medicine; PCP Internal Medicine
DX: R06.00 Dyspnea, unspecified (principal)
CPT/HCPCS: 71275; 99282; 99284; Q9967

== ENCOUNTER 2021-07-23 08:34 | Outpatient (CLI) | payer BC, SELFPAY ==
--- NOTE | ~2021-07-23 | CT_ITS ---
EXAMINATION: CT abdomen pelvis w con DATE: 07/23/2021 09:20 INDICATION: Diverticulitis. Left lower quadrant pain. TECHNIQUE: Computed tomography (CT) of the abdomen and pelvis was performed without intravenous contr ast. The dose-length product was 532.99 mGy-cm. Automated exposure control and iterative reconstructi on technique were employed. COMPARISON: CT dated 06/07/2021. FINDINGS: Lung bases are unremarkable. Interval resolution of multifocal groundglass opacities. Heart size normal. Small hiatal hernia. The liver, spleen, pancreas, adrenal glands and kidneys are unrema rkable. Gallbladder is present. Moderate colonic fecal loading. Nonobstructive bowel gas pattern. No evidence for diverticulitis. No free air or free fluid. No significant vascular abnormality. No lymph adenopathy. IMPRESSION: 1. No acute abdominal abnormality. Interval resolution of bilateral groundglass opacities and colonic diverticulitis. Reviewed, dictated and finalized at location B.
[2021-07-23 08:43] LABS: Basophils Absolute Auto 0.05 K/mm3 (0.00-0.10); Basophils Percent Auto 0.7 % (0.0-1.0); Eosinophils Absolute Auto 0.08 K/mm3 (0.02-0.50); Eosinophils Percent Auto 1.1 % (1.0-6.0); Hematocrit 40.1 % (40.0-54.0); Hemoglobin 13.8 g/dL (14.0-18.0); Immature Granulocyte Absolute 0.03 K/mm3 (0.00-0.00); Immature Granulocyte Percent A 0.4 % (0.0-0.0); Lymphocytes Percent Auto 25.5 % (18.0-42.0); Mean Corpuscular HGB Conc 34.4 g/dL (32.0-36.0); Mean Corpuscular Hemoglobin 30.7 pg (27.0-31.0); Mean Corpuscular Volume 89.3 fL (78.0-102.0); Monocytes Absolute Auto 0.49 K/mm3 (0.10-0.90); Monocytes Percent Auto 6.6 % (2.0-11.0); Neutrophils Absolute Auto 4.9 K/mm3 (1.7-7.2); Neutrophils Percent Auto 65.7 % (50.0-70.0); Platelet Count Result 237 K/mm3 (150-420); Red Blood Count 4.49 M/mm3 (4.70-6.10); Red Cell Distribution Width 12.8 % (11.6-14.4); White Blood Count 7.5 K/mm3 (4.8-10.8)
[2021-07-23 09:43] LABS: Alanine Aminotransferase 42 U/L (16-63); Albumin Level 3.6 g/dL (3.4-5.0); Alkaline Phosphatase 74 U/L (46-116); Anion Gap 10 mmol/L (8-16); Aspartate Amino Transferase 16 U/L (15-37); Bilirubin,Total 0.4 mg/dL (0.00-1.00); Blood Urea Nitrogen 13 mg/dL (7-18); Calcium 8.7 mg/dL (8.5-10.1); Carbon Dioxide 29 mmol/L (21-32); Chloride 105 mmol/L (98-108); Estimated Glomerular Filt Rate > 60; Glucose 95 mg/dL (70-99); Osmolality Calculated 298 mOsm/kg (285-295); Potassium 4.7 mmol/L (3.5-5.1); Sodium 144 mmol/L (136-145); Total Protein 6.4 g/dL (6.4-8.2)
== END 2021-07-23 08:35 | disposition home or self-care (01) ==
LOC: CHSIMG 08:35
PROVIDERS: PCP Internal Medicine; Visit Provider Internal Medicine
DX: K57.92 Diverticulitis of intestine, part unspecified, without perforation or abscess without bleeding (principal)
CPT/HCPCS: 36415; 74177; 80053; 85025; Q9967

== ENCOUNTER 2021-08-06 11:48 | Outpatient (CLI) | payer MEDICAID, SELFPAY ==
--- NOTE | ~2021-08-06 | XR_ITS ---
EXAMINATION: XR chest 2V DATE: 08/06/2021 12:17 INDICATION: Shortness of breath TECHNIQUE: PA and lateral views of the chest are obtained. COMPARISON: 07/18/2021 FINDINGS: The lungs are free of acute opacities. There is no pleural effusion or pneumothorax. The ca rdiomediastinal silhouette is normal. There is mild thoracic spondylosis. There is internal stabiliza tion hardware in the left clavicle. IMPRESSION: 1. No acute cardiopulmonary abnormality. Reviewed, dictated and finalized at location B.
[2021-08-06 12:05] LABS: Basophils Absolute Auto 0.03 K/mm3 (0.00-0.10); Basophils Percent Auto 0.5 % (0.0-1.0); Eosinophils Absolute Auto 0.04 K/mm3 (0.02-0.50); Eosinophils Percent Auto 0.6 % (1.0-6.0); Hemoglobin 14.1 g/dL (14.0-18.0); Immature Granulocyte Absolute 0.02 K/mm3 (0.00-0.00); Immature Granulocyte Percent A 0.3 % (0.0-0.0); Lymphocytes Absolute Auto 1.46 K/mm3 (1.10-4.50); Lymphocytes Percent Auto 22.1 % (18.0-42.0); Mean Corpuscular HGB Conc 34.4 g/dL (32.0-36.0); Mean Corpuscular Hemoglobin 30.8 pg (27.0-31.0); Mean Corpuscular Volume 89.5 fL (78.0-102.0); Mean Platelet Volume 8.8 fl (8.7-11.0); Monocytes Absolute Auto 0.44 K/mm3 (0.10-0.90); Monocytes Percent Auto 6.6 % (2.0-11.0); Neutrophils Absolute Auto 4.6 K/mm3 (1.7-7.2); Neutrophils Percent Auto 69.9 % (50.0-70.0); Platelet Count Result 256 K/mm3 (150-420); Red Blood Count 4.58 M/mm3 (4.70-6.10); Red Cell Distribution Width 13.8 % (11.6-14.4); White Blood Count 6.6 K/mm3 (4.8-10.8)
--- NOTE | 2021-08-06 12:10 | ECG_ITS ---
Measurements Intervals [place] Rate: 75 P: 51 CO: 140 QRS: 78 QRSD: 107 T: 14 QT: 354 QTc: 395 Interpretive Statements SINUS RHYTHM MINIMAL Q WAVES- INFERIOR LEADS BORDERLINE ECG Electronically Signed On 08-06-2021 12:50:48 CDT by Federico Cortes D.O.
[2021-08-06 12:53] LABS: Alanine Aminotransferase 26 U/L (16-63); Albumin Level 3.9 g/dL (3.4-5.0); Alkaline Phosphatase 69 U/L (46-116); Anion Gap 8 mmol/L (8-16); Aspartate Amino Transferase 13 U/L (15-37); Bilirubin,Total 0.7 mg/dL (0.00-1.00); Blood Urea Nitrogen 13 mg/dL (7-18); CRP < 0.2 mg/dL (0.0-0.9); Calcium 9.1 mg/dL (8.5-10.1); Carbon Dioxide 30 mmol/L (21-32); Chloride 105 mmol/L (98-108); Estimated Glomerular Filt Rate > 60; Glucose 88 mg/dL (70-99); NT Pro B Type Natriuretic Pept 65 pg/mL (0-125); Osmolality Calculated 295 mOsm/kg (285-295); Potassium 4.4 mmol/L (3.5-5.1); Sodium 143 mmol/L (136-145); Total Protein 6.7 g/dL (6.4-8.2)
[2021-08-06 13:08] LABS: Erythrocyte Sedimentation Rate 13 mm/hr (0-15)
== END 2021-08-06 11:49 | disposition home or self-care (01) ==
PROVIDERS: PCP Internal Medicine; Visit Provider Internal Medicine
DX: R06.00 Dyspnea, unspecified (principal); R53.83 Other fatigue; K57.90 Diverticulosis of intestine, part unspecified, without perforation or abscess without bleeding; Z86.16 Personal history of COVID-19
CPT/HCPCS: 36415; 71046; 80053; 83880; 85025; 85652; 86140; 93005

== ENCOUNTER 2021-09-03 08:35 | Outpatient (CLI) | payer OTHER, MEDICAID, SELFPAY ==
--- NOTE | ~2021-09-03 | XR_ITS ---
EXAMINATION: XR chest 2V 09/03/2021 09:02 INDICATION: Cough. Post Covid. PROCEDURE: 2 view chest COMPARISON: 07/18/2021 FINDINGS: The lungs are clear. The cardiomediastinal silhouette is within normal limits. There are no pleural effusions. There is no pneumothorax suspected. There is side plate and screws transfixin g the left clavicle. No acute osseous abnormality. IMPRESSION: 1: NO ACUTE CARDIOPULMONARY DISEASE. Reviewed, dictated and finalized at location B. BUFFER
[2021-09-03 08:53] LABS: Basophils Absolute Auto 0.04 K/mm3 (0.00-0.10); Basophils Percent Auto 0.5 % (0.0-1.0); Eosinophils Absolute Auto 0.06 K/mm3 (0.02-0.50); Eosinophils Percent Auto 0.8 % (1.0-6.0); Hematocrit 42.6 % (40.0-54.0); Hemoglobin 14.8 g/dL (14.0-18.0); Immature Granulocyte Absolute 0.02 K/mm3 (0.00-0.00); Immature Granulocyte Percent A 0.3 % (0.0-0.0); Lymphocytes Absolute Auto 2.02 K/mm3 (1.10-4.50); Lymphocytes Percent Auto 27.4 % (18.0-42.0); Mean Corpuscular HGB Conc 34.7 g/dL (32.0-36.0); Mean Corpuscular Hemoglobin 31.3 pg (27.0-31.0); Mean Corpuscular Volume 90.1 fL (78.0-102.0); Mean Platelet Volume 8.8 fl (8.7-11.0); Monocytes Absolute Auto 0.47 K/mm3 (0.10-0.90); Monocytes Percent Auto 6.4 % (2.0-11.0); Neutrophils Absolute Auto 4.8 K/mm3 (1.7-7.2); Neutrophils Percent Auto 64.6 % (50.0-70.0); Platelet Count Result 246 K/mm3 (150-420); Red Blood Count 4.73 M/mm3 (4.70-6.10); Red Cell Distribution Width 12.8 % (11.6-14.4); White Blood Count 7.4 K/mm3 (4.8-10.8)
[2021-09-03 09:33] LABS: Alanine Aminotransferase 26 U/L (16-63); Albumin Level 3.7 g/dL (3.4-5.0); Alkaline Phosphatase 82 U/L (46-116); Anion Gap 10 mmol/L (8-16); Aspartate Amino Transferase 17 U/L (15-37); Bilirubin,Total 0.4 mg/dL (0.00-1.00); Blood Urea Nitrogen 14 mg/dL (7-18); Calcium 8.6 mg/dL (8.5-10.1); Carbon Dioxide 27 mmol/L (21-32); Chloride 105 mmol/L (98-108); Estimated Glomerular Filt Rate > 60; Glucose 110 mg/dL (70-99); Osmolality Calculated 295 mOsm/kg (285-295); Potassium 4.1 mmol/L (3.5-5.1); Sodium 142 mmol/L (136-145); Total Protein 6.7 g/dL (6.4-8.2)
== END 2021-09-03 08:36 | disposition home or self-care (01) ==
LOC: CHSLAB 08:37
PROVIDERS: PCP Internal Medicine; Visit Provider Internal Medicine
DX: R05.8 Other specified cough (principal); Z86.16 Personal history of COVID-19
CPT/HCPCS: 36415; 71046; 80053; 85025; 87324

== ENCOUNTER 2021-09-11 15:58 | Outpatient (CLI) | payer OTHER, MEDICAID, SELFPAY | END 2021-09-11 15:59 | disposition home or self-care (01) | LOC: CHSLAB 16:00 | PROVIDERS: PCP Internal Medicine; Visit Provider Internal Medicine | DX: R19.7 Diarrhea, unspecified (principal) | CPT/HCPCS: 99199; 87324 ==

== ENCOUNTER 2021-09-29 13:50 | Outpatient (CLI) | payer OTHER, MEDICAID, SELFPAY ==
[2021-09-29 15:08] LABS: SARS-CoV-2 RNA PCR Negative (Negative)
== END 2021-09-29 13:51 | disposition home or self-care (01) ==
LOC: CHSLAB 13:53
PROVIDERS: PCP Internal Medicine; Visit Provider Internal Medicine
DX: Z20.822 Contact with and (suspected) exposure to COVID-19 (principal)
CPT/HCPCS: C9803; U0003; U0005

== ENCOUNTER 2022-02-13 10:21 | Outpatient (CLI) | payer OTHER, MEDICAID, SELFPAY ==
--- NOTE | ~2022-02-13 | XR_ITS ---
XR chest 2V DATE: 02/13/2022 10:52 INDICATION: Cough for one week and hemoptysis for 2 days TECHNIQUE: 2 views COMPARISON: 09/03/2021 2 view chest FINDINGS: Bilateral hyperinflation. No pulmonary infiltrate or consolidation, pleural effusion or pul monary vascular congestion or pneumothorax. Normal heart size. No hilar or mediastinal enlargement. Plate and screws along the left clavicle. IMPRESSION: No active cardiopulmonary disease or significant change since 09/03/2021 Reviewed, dictated and finalized at location [facility]. IMPRESSION: No active cardiopulmonary disease or significant change since 2020
[2022-02-13 11:32] LABS: SARS-CoV-2 RNA PCR Negative (Negative)
== END 2022-02-13 10:22 | disposition home or self-care (01) ==
LOC: CHSIMG 10:23
PROVIDERS: PCP Internal Medicine; Visit Provider Nurse Practitioner Family
DX: J06.9 Acute upper respiratory infection, unspecified (principal); R05.9 Cough, unspecified; R04.2 Hemoptysis
CPT/HCPCS: 71046; C9803; U0003; U0005

== ENCOUNTER 2022-04-17 01:12 | Day surgery (SDC) | payer OTHER, MEDICAID, SELFPAY ==
[2022-02-09 09:27] VITALS: BMI 27.1
[2022-03-31 14:36] VITALS: BMI 27.1
--- NOTE | 2022-04-16 15:20 | WPDANESEPPF ---
Anes - Initial Pre Proc Eval Procedure: Operation Date: 04/17/22 07:30 Proposed Procedures p Colonoscopy - Keon Thomas MD <Erik Bird, DO - Last Filed: 04/16/22 15:21> Date/Time: 04/16/22 15:20 <Erik Bird DO - Last Filed: 04/16/22 15:21> Surgeon: Keon Thomas MD <Erik Bird, DO - Last Filed: 04/16/22 15:21> Pre Op Diagnosis: diverticulitis <Erik Bird DO - Last Filed: 04/16/22 15:21> Patient Data Age: 36 Gender: M Height: 1.83 m Weight: 91 kg <Erik Bird DO - Last Filed: 04/16/22 15:21> Allergies Allergy/AdvReac Type Severity Reaction Status Date / Time phenobarbital AdvReac hives and Verified 04/17/22 06:31 itching <Erik Bird DO - Last Filed: 04/16/22 15:21> Home Medications Medication Instructions Recorded Confirmed Type albuterol sulfate 90 mcg/actuation 2 puff inhalation QID PRN 06/07/21 04/17/22 Rx aerosol inhaler shortness of breath or wheezing #6.7 grams ascorbate calcium (vitamin C) 500 500 mg PO DAILY 10/21/21 04/17/22 History mg tablet magnesium 200 mg tablet 200 mg PO DAILY 10/21/21 04/17/22 History multivitamin 1 tablet PO DAILY 10/21/21 04/17/22 History zinc 50 mg tablet 50 mg PO DAILY 10/21/21 04/17/22 History <Erik Bird DO - Last Filed: 04/16/22 15:21> Patient hx anesthesia problems: none <Gloria Carter CRNA - Last Filed: 04/17/22 06:45> Family hx anesthesia problems: none <Gloria Carter CRNA - Last Filed: 04/17/22 06:45> Results Review: All pre-operative results and documents have been reviewed as part of the pre-operative evaluation. <Erik Bird DO - Last Filed: 04/16/22 15:21> [facility] Past Medical History Medical History: Medical History Diverticulitis Healthy adult LLQ pain Patient denies significant medical history <Erik Bird DO - Last Filed: 04/16/22 15:21> Surgical History Surgical History: Surgical History No pertinent past surgical history <Erik Bird DO - Last Filed: 04/16/22 15:21> Social History Social History: Social History Smoking status: Never smoker Alcohol intake: current Drinks per week: 10 Substance use: current Substance use type: marijuana Other substance usage details: Daily Living arrangements: with family Spiritual care concerns: No <Erik Bird DO - Last Filed: 04/16/22 15:21> Anes - Eval Final PreProcedure Day of Procedure 04/16/22 15:20 <Erik Bird DO - Last Filed: 04/16/22 15:21> Patient weight: overweight <Erik Bird DO - Last Filed: 04/16/22 15:21> Heart: regular rate and rhythm <Erik Bird DO - Last Filed: 04/16/22 15:21> Lungs: clear to auscultation <Erik Bird DO - Last Filed: 04/16/22 15:21> Airway: Mallampati scale class II <Erik Bird DO - Last Filed: 04/16/22 15:21> Neurological: alert and oriented <Erik Bird DO - Last Filed: 04/16/22 15:21> Last oral intake: >/= 8 hours <Erik Bird DO - Last Filed: 04/16/22 15:21> ASA classification: II <Erik Bird DO - Last Filed: 04/16/22 15:21> Emergent: no <Erik Bird DO - Last Filed: 04/16/22 15:21> Anesthetic plan: proceed <Erik Bird DO - Last Filed: 04/16/22 15:21> Anesthesia type and monitoring: general GIVS and standard monitoring <Erik Bird DO - Last Filed: 04/16/22 15:21> Results Review: All pre-operative results and documents have been reviewed as part of the pre-operative evaluation. <Erik Bird DO - Last Filed: 04/16/22 15:2
[2022-04-17 06:32] VITALS: BP 105/68; PULSE 63; RESP 17; TEMP 36.4; O2SAT 100
[2022-04-17] MEDS: LACTATED RINGERS 1,000 ML 150 ML IV CONT (06:39)
--- NOTE | 2022-04-17 07:21 | PM.HPGS ---
History of Present Illness History of Present Illness Consent: Risks, benefits, and alternatives have been discussed and questions answered. Patient agrees to proceed with procedure. Chief complaint: diverticulitis Narrative: Brad Malloy is a 36 year old male with episode of diverticulitis last year, now asymptomatic Review of Systems Constitutional: Constitutional: Denies headache(s) and Denies weakness Eyes: Eyes: Denies blurry vision ENT: Reports Normal hearing present, Denies headache(s) and Denies neck pain Cardiovascular: Cardiovascular: Denies chest pain and Denies dyspnea Respiratory: Respiratory: Denies dyspnea Gastrointestinal: Gastrointestinal: Reports no additional gastrointestinal complaints Genitourinary: Genitourinary: Denies dysuria Musculoskeletal: Musculoskeletal: Denies neck pain Integumentary/Breasts: Skin/Breast: Denies dry skin Neurologic: Reports Normal hearing present, Denies headache(s) and Denies weakness Psychiatric: Psychiatric: Denies anxiety Endocrine: Endocrine: Denies change in body appearance Hematologic/Lymphatic: Hematologic/Lymphatic: Denies easy bleeding Allergic/Immunologic: Allergic/Immunologic: Denies urticaria PMFSH Past Medical History Medical History Diverticulitis Healthy adult LLQ pain Patient denies significant medical history Surgical History Surgical History No pertinent past surgical history Social History Social History Smoking status: Never smoker Alcohol intake: current Drinks per week: 10 Substance use: current Substance use type: marijuana Other substance usage details: Daily Living arrangements: with family Spiritual care concerns: No Meds Home Medications and Allergies Home Medications Medication Instructions Recorded Confirmed Type albuterol sulfate 90 mcg/actuation 2 puff inhalation QID PRN 06/07/21 04/17/22 Rx aerosol inhaler shortness of breath or wheezing #6.7 grams ascorbate calcium (vitamin C) 500 500 mg PO DAILY 10/21/21 04/17/22 History mg tablet magnesium 200 mg tablet 200 mg PO DAILY 10/21/21 04/17/22 History multivitamin 1 tablet PO DAILY 10/21/21 04/17/22 History zinc 50 mg tablet 50 mg PO DAILY 10/21/21 04/17/22 History Allergies Allergy/AdvReac Type Severity Reaction Status Date / Time phenobarbital AdvReac hives and Verified 04/17/22 06:31 itching Vital Signs Vital Signs - 24 hr 04/17/22 06:32 Temperature 97.6 F Pulse Rate 63 Respiratory Rate 17 Blood Pressure 105/68 Pulse Oximetry 100 Oxygen Delivery Room Air Exam Const: General: comfortable and no acute distress HENMT: General nose exam: Normal nares present Eyes: General: appearance normal, both eyes and all related structures Neck: Neck: no JVD Resp: Auscultation: clear to auscultation bilaterally Cardio: Rate: regular rate Rhythm: regular rhythm GI: Inspection: non-distended GI Palp: Yes Soft to palpation Skin: General skin exam: normal color Neuro: General: gait normal Speech: normal speech Extrem: General: normal to inspection Psych: Mental Status: mental status grossly normal Assessment and Plan Assessment and plan (1) Diverticulitis: Code(s): K57.92 - Diverticulitis of intestine, part unspecified, without perforation or abscess without bleeding Status: Acute Assessment and Plan: colonoscopy
[2022-04-17 07:48] VITALS: BP 88/54; PULSE 65; RESP 15; O2SAT 97
[2022-04-17 07:58] VITALS: BP 103/69; PULSE 60; RESP 14; O2SAT 100
[2022-04-17 08:08] VITALS: BP 107/68; PULSE 61; RESP 17; O2SAT 100
== END 2022-04-17 08:15 | disposition home or self-care (01) ==
PROVIDERS: PCP Internal Medicine; Visit Provider Internal Medicine Gastroenterology
PROC: 0DJD8ZZ Inspection of Lower Intestinal Tract, Via Natural or Artificial Opening Endoscopic (ICD-10-PCS; CPT 45378; principal; 2022-04-17 07:30)
DX: K57.30 Diverticulosis of large intestine without perforation or abscess without bleeding (principal); K64.8 Other hemorrhoids
CPT/HCPCS: 45378; J7120

== ENCOUNTER 2024-08-16 16:50 | Outpatient (CLI) | payer OTHER, SELFPAY ==
[2024-08-16 17:14] LABS: Hematocrit 38.6 % (40.0-54.0); Hemoglobin 13.5 g/dL (14.0-18.0); Mean Corpuscular Hemoglobin 30.1 pg (27.0-31.0); Mean Corpuscular Volume 86.2 fL (78.0-102.0); Mean Platelet Volume 9.2 fl (8.7-11.0); Platelet Count Result 279 K/mm3 (150-420); Red Blood Count 4.48 M/mm3 (4.70-6.10); Red Cell Distribution Width 12.1 % (11.6-14.4); White Blood Count 9.1 K/mm3 (4.8-10.8)
[2024-08-16 17:59] LABS: Alanine Aminotransferase 26 U/L (16-63); Albumin Level 3.9 g/dL (3.4-5.0); Alkaline Phosphatase 93 U/L (46-116); Anion Gap 8 mmol/L (4-12); Aspartate Amino Transferase 19 U/L (15-37); Bilirubin,Total 0.5 mg/dL (0.00-1.00); Blood Urea Nitrogen 11 mg/dL (7-18); Calcium 9.1 mg/dL (8.5-10.1); Carbon Dioxide 30 mmol/L (21-32); Chloride 101 mmol/L (98-108); Estimated Glomerular Filt Rate > 60; Glucose 114 mg/dL (70-99); Osmolality Calculated 288 mOsm/kg (285-295); Potassium 4.5 mmol/L (3.5-5.1); Sodium 139 mmol/L (136-145); Thyroid Stimulating Hormone 1.22 uIU/mL (0.36-3.74); Total Protein 6.6 g/dL (6.4-8.2)
== END 2024-08-16 16:51 | disposition home or self-care (01) ==
PROVIDERS: PCP Internal Medicine; Visit Provider Nurse Practitioner Family
DX: B35.3 Tinea pedis (principal); Z79.899 Other long term (current) drug therapy
CPT/HCPCS: 36415; 80053; 84439; 84443; 85027

== ENCOUNTER 2024-10-10 16:42 | Outpatient (CLI) | payer OTHER, SELFPAY ==
--- NOTE | ~2024-10-10 | XR_ITS ---
HISTORY: left wrist and hand pain, dyspnea COMPARISON: None TECHNIQUE: 3 views of the left wrist were performed. FINDINGS: No acute fracture is identified. The carpal arcs are intact. Mild radiocarpal joint space narrowing with sclerosis of the distal radius is present. The remaining visualized joint spaces are otherwise preserved. Narrowing and degenerative change within the first carpometacarpal joint space Bone mineralization is unremarkable. No significant soft tissue swelling is noted. No radiopaque foreign body is identified. IMPRESSION: Degenerative disease, without acute fracture. Reviewed, dictated and finalized at location A. UNTING REPRESENTATIVE
--- NOTE | ~2024-10-10 | XR_ITS ---
CHEST RADIOGRAPH, PA AND LATERAL CLINICAL HISTORY: left wrist and hand pain, dyspnea . COMPARISON: 02/13/2022 TECHNIQUE: PA and lateral views of the chest. FINDINGS The cardiomediastinal silhouette is unremarkable. The lungs are clear. Fixation hardware within the left clavicle. Remaining visualized osseous structures and soft tissues are unremarkable. IMPRESSION: No focal infiltrate or effusion. Reviewed, dictated and finalized at location A. SETTER
--- NOTE | ~2024-10-10 | XR_ITS ---
HISTORY: left wrist and hand pain, dyspnea COMPARISON: None TECHNIQUE: 3 views of the left hand were performed. FINDINGS: No acute fracture is identified. The joint spaces are preserved. The carpal arcs are intact. Mild radiocarpal joint space narrowing with sclerosis of the distal radius is present. Degenerative change at the first carpometacarpal joint space. Bone mineralization is unremarkable. No significant soft tissue swelling. No radiopaque foreign body is identified. IMPRESSION: Degenerative change, without acute fracture or dislocation within the left hand, as detailed above. Reviewed, dictated and finalized at location A. 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
== END 2024-10-10 16:43 | disposition home or self-care (01) ==
LOC: CHSIMG 16:45
PROVIDERS: PCP Internal Medicine; Visit Provider Internal Medicine
DX: M25.532 Pain in left wrist (principal); R06.00 Dyspnea, unspecified
CPT/HCPCS: 71046; 73100; 73120

== ENCOUNTER 2024-10-11 17:42 | Outpatient (CLI) | payer OTHER, SELFPAY ==
[2024-10-11 18:01] LABS: Hematocrit 39.2 % (40.0-54.0); Hemoglobin 13.6 g/dL (14.0-18.0); Mean Corpuscular HGB Conc 34.7 g/dL (32-36); Mean Corpuscular Hemoglobin 30.1 pg (27.0-31.0); Mean Corpuscular Volume 86.7 fL (78.0-102.0); Mean Platelet Volume 8.7 fl (8.7-11.0); Platelet Count Result 290 K/mm3 (150-420); Red Blood Count 4.52 M/mm3 (4.70-6.10); Red Cell Distribution Width 12.3 % (11.6-14.4); White Blood Count 9.3 K/mm3 (4.8-10.8)
[2024-10-11 18:52] LABS: Uric Acid 7.1 mg/dL (3.5-7.2)
[2024-10-11 18:54] LABS: CRP < 0.5 mg/dL (0.0-0.9); Rheumatoid Factor Screen Negative (Negative)
[2024-10-11 19:00] LABS: Erythrocyte Sedimentation Rate 14 mm/hr (0-15)
[2024-10-16 13:23] LABS: Lyme Disease Ab (IgM), Blot NEGATIVE (NEGATIVE); Lyme Disease Ab(IgG), Blot NEGATIVE (NEGATIVE)
== END 2024-10-11 17:43 | disposition home or self-care (01) ==
LOC: CHSLAB 17:45
PROVIDERS: PCP Internal Medicine; Visit Provider Internal Medicine
DX: M25.532 Pain in left wrist (principal)
CPT/HCPCS: 36415; 84550; 85027; 85652; 86038; 86140; 86200; 86430; 86617

== ENCOUNTER 2024-10-17 13:03 | Outpatient (CLI) | payer OTHER, SELFPAY | END 2024-10-17 13:04 | disposition home or self-care (01) | PROVIDERS: PCP Internal Medicine; Visit Provider Internal Medicine | DX: R06.00 Dyspnea, unspecified (principal); R94.2 Abnormal results of pulmonary function studies | CPT/HCPCS: 94060; 94726; 94729 ==

== ENCOUNTER 2024-10-25 16:24 | Outpatient (CLI) | payer OTHER, SELFPAY ==
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
--- OUTSIDE RECORDS SUMMARY | 2024-10-27 03:18 | XMS_ITS | Encounter Summary ---
[facility] Organization [facility] Address [address] 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
--- OUTSIDE RECORDS SUMMARY | 2024-10-27 03:18 | XMS_ITS | Encounter Summary ---
Author Organization [facility] Address [address] 

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
--- OUTSIDE RECORDS SUMMARY | 2024-10-27 03:18 | XMS_ITS | Clinical Summary ---
Author Organization [facility] Address [address] 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
--- OUTSIDE RECORDS SUMMARY | 2024-10-27 03:18 | XMS_ITS | Referral Summary ---
Author Organization [facility] Address [address] 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,non-owned Affiliates and Associated Physician Practices is amultiple site organization consisting of ambulatory clinics and hospital sitesin [place], [place], [place] and [place]. This disclosure is being madepursuant to the Care Everywhere program and may not contain all information available regarding this patient. Last updated 18.[facility] Allergies Active Allergy Reactions Criticality Noted Date [...] Mass Index 24.41 05/24/2018 9:49 AM CDT Functional Status Functional Status Response Date of Assess ment Is person deaf or have serious hearing difficult y? No 04/02/2018 Is person blind or have serious difficulty seein g? No 04/02/2018 Does person have serious dif ficulty walking/climbing stairs? No 04/02/2018 Does person have difficulty dressing/bathing? No 04/02/2018 Does person have difficulty doing errands alone? No 04/02/2018 Cognitive Status Response Date of Assessm ent Does person have difficulty concentrating/remembering/making decisions? No 04/02/2018 Plan of Treatment Not on file Medical Devices Implanted Type Area Impregnating Helper Device Identifier Shelf Expiration Date Model / Serial / Lot Nail 10mm 42cm Im Fem Tmx Versanail Unv Implanted:Qty: 1 on 04/03/2018 by Chicho Jay MD at [facility] Right: [employer] 2024 1813-10-4 2 [id number] Screw 6.5mm 50mm Actb Jaziel Slf-Tap Trlg Implanted:Qty: 1 on 04/03/2018 by Chicho Jay MD at [facility] Right: [employer] [id number] / / Description: 6.5 SOLID JAZIEL FT LOCK 75MM NS 6.5mm Solid Cortical Screws, Full Thread, 60mm Length Implanted:Qty: 1 on 04/03/2018 by Chicho Jay MD at [facility] Right: [employer] [id number] / / 4.5mm Solid Cortical Screws, Full Thread, 44mm Implanted:Qty: 1 on 04/03/2018 by Chicho Jay MD at [facility] Right: [employer] [id number] / / Screw 3.5mm 16mm Elb Slf-Tap Lck Variax Implanted:Qty: 2 on 04/07/2018 by Chicho Jay MD at [facility] Left: Clavicle [employer] [id number] / / Screw 3.5mm 14mm Elb Slf-Tap [employer]x Ti Implanted:Qty: 1 on 04/07/2018 by Chicho Jay MD at [facility] Left: Clavicle [employer] [id number] / / Screw 3.5mm 16mm Elb Slf-Tap [employer] Ti Implanted:Qty: 3 on 04/07/2018 by Chicho Jay MD at [facility] Left: Clavicle [employer] [id number] / / Screw 3.5mm 18mm Elb Slf-Tap [employer]x Ti Implanted:Qty: 1 on 04/07/2018 by Chicho Jay MD at [facility] Left: Clavicle [employer] [id number] / / 7 Hole Plate - Superior Lateral Implanted:Qty: 1 on 04/07/2018 by Chicho Jay MD at [facility] Left: Clavicle [employer] [id number] / / 3.5mm Bone Screw 12mm Implanted:Qty: 2 on 04/07/2018 by Chicho Jay MD at [facility] Left: Clavicle [id number] / / Explanted Type Area Impregnating Helper Device Identifier Shelf Expiration Date Model / Serial / Lot Wire K 1.6mm 150mm Fx Explanted:Qty: 3 on 04/07/2018 at [facility] Left: Clavicle [employer] [id number] / / Advance Directives * Full Code (Latest Code Status on File) Date Activated Date Inactivated Comments 04/03/2018 10:36 AM 04/12/2018 6:36 PM * Full Code Date Activated Date Inactivated Comments 04/02/2018 6:46 PM 04/03/2018 10:36 AM
--- OUTSIDE RECORDS SUMMARY | 2024-10-27 03:18 | XMS_ITS | Encounter Summary ---
Author Organization [facility] Address [address] [place] [address] Care Team Providers Care Team Facilitator Name Role Phone Unavailable Primary Care Provider Unavailabl e Encounter Details Date Type Department Care Team (Late st Contact Info) Description 02/10/2001 Outpatient Historical [facility] [address] [place] [address] Edwin Michael MD [address] [place] [address] Social History Tobacco Use Types Packs/Day Years Used Date Smoking Tobacco: Never Assessed Sex and Gender Information Value Date Recorded Sex Assigned at Not on file 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
--- OUTSIDE RECORDS SUMMARY | 2024-10-27 03:18 | XMS_ITS | Encounter Summary ---
Author Organization [facility] Address [address] [place] [address] Care Team Providers Care Android Software Engineer Name Role Phone Unavailable Primary Care Provider Unavailabl e Encounter Details Date Type Department Care Team (Late st Contact Info) Description 06/06/2002 Outpatient Historical [facility] [address] [place] [address] Edwin Michael MD [address] [place] [address] Social History Tobacco Use Types Packs/Day Years Used Date Smoking Tobacco: Never Assessed Sex and Gender Information Value Date Recorded Sex Assigned at Not on file 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
== END 2024-10-25 16:25 | disposition home or self-care (01) ==
PROVIDERS: PCP Internal Medicine; Visit Provider Internal Medicine
DX: R00.2 Palpitations (principal)
CPT/HCPCS: 93270

== ENCOUNTER 2024-11-01 09:16 | Outpatient (CLI) | payer OTHER, SELFPAY ==
[2024-11-01 09:45] LABS: Immature Reticulocyte Fraction 8.2 % (2.0-16.52); Reticulocyte Hemoglobin Conten 34.9 pg (28.0-35.0); Reticulocyte Percent 0.95 % (0.50-1.50); Reticulocytes Absolute 0.05 M/mm3 (0.02-0.10)
[2024-11-01 10:45] LABS: Cholesterol 227 mg/dL (0-200); Ferritin 156 ng/mL (26-388); Free T4 Free Thyroxine 0.85 ng/dL (0.76-1.46); HDL Direct 46 mg/dL (40-60); Iron 117 ug/dL (65-175); LDL Cholesterol Calculated 166 mg/dL (<130); Thyroid Stimulating Hormone 1.02 uIU/mL (0.36-3.74); Triglycerides 77 mg/dL (0-150); Vitamin B12 446 pg/mL (193-986)
[2024-11-04 21:44] LABS: Red Blood Cell Folate 475 ng/mL RBC (>280)
== END 2024-11-01 09:17 | disposition home or self-care (01) ==
PROVIDERS: PCP Internal Medicine; Visit Provider Internal Medicine
DX: D64.9 Anemia, unspecified (principal); R00.2 Palpitations; R53.83 Other fatigue; E78.2 Mixed hyperlipidemia
CPT/HCPCS: 36415; 80061; 82607; 82728; 82747; 83540; 84439; 84443; 85046

== ENCOUNTER 2025-03-09 07:10 | Outpatient (CLI) | payer OTHER, SELFPAY ==
[2025-03-09 07:40] LABS: Basophils Absolute Auto 0.03 K/mm3 (0.00-0.10); Basophils Percent Auto 0.5 % (0.0-1.0); Eosinophils Absolute Auto 0.07 K/mm3 (0.02-0.50); Eosinophils Percent Auto 1.1 % (1.0-6.0); Hematocrit 41.1 % (40.0-54.0); Immature Granulocyte Absolute 0.01 K/mm3 (0.00-0.00); Immature Granulocyte Percent A 0.2 % (0.0-0.0); Lymphocytes Percent Auto 34.5 % (18.0-42.0); Mean Corpuscular HGB Conc 34.1 g/dL (32-36); Mean Corpuscular Hemoglobin 29.9 pg (27.0-31.0); Mean Corpuscular Volume 87.8 fL (78.0-102.0); Mean Platelet Volume 9.1 fl (8.7-11.0); Monocytes Absolute Auto 0.44 K/mm3 (0.10-0.90); Monocytes Percent Auto 6.6 % (2.0-11.0); Neutrophils Absolute Auto 3.81 K/mm3 (1.70-7.20); Neutrophils Percent Auto 57.1 % (50.0-70.0); Platelet Count Result 269 K/mm3 (150-420); Red Blood Count 4.68 M/mm3 (4.70-6.10); Red Cell Distribution Width 12.2 % (11.6-14.4); White Blood Count 6.7 K/mm3 (4.8-10.8)
[2025-03-09 12:18] LABS: Alanine Aminotransferase 24 U/L (6-50); Albumin Level 4.3 g/dL (3.5-5.1); Alkaline Phosphatase 66 U/L (38-126); Anion Gap 4 mmol/L (4-12); Aspartate Amino Transferase 30 U/L (17-59); Bilirubin,Total 0.9 mg/dL (0.2-1.3); Blood Urea Nitrogen 13 mg/dL (9-20); Calcium 8.9 mg/dL (8.4-10.2); Carbon Dioxide 28 mmol/L (22-30); Chloride 107 mmol/L (98-107); Creatine Kinase 151 U/L (55-170); Estimated Glomerular Filt Rate > 60; Glucose 98 mg/dL (65-110); Iron 95 ug/dL (49-181); Osmolality Calculated 288 mOsm/kg (285-295); Potassium 4.3 mmol/L (3.4-5.0); Sodium 139 mmol/L (137-145); Total Protein 6.5 g/dL (6.3-8.2)
[2025-03-09 12:37] LABS: Free T4 Free Thyroxine 0.87 ng/dL (0.78-2.19)
[2025-03-09 17:38] LABS: Add Urine Microscopic? NO; Appearance Urine Clear (Clear); Bilirubin Urine Negative (Negative); Blood Urine Negative (Negative); Color Urine Light Yellow (Yellow); Glucose Urine UA Negative (Negative); Ketones Urine Negative (Negative); Leukocyte Esterase Ur Negative LEU/UL (Negative); Nitrate Urine Negative (Negative); Protein Urine Negative (Negative); Specific Grav Ur 1.025 (1.010-1.020); Urobilinogen Urine 0.2 mg/dL (0.2-1.0)
[2025-03-12 16:41] LABS: Cholesterol 224 mg/dL (0-200); HDL Direct 36 mg/dL; LDL Cholesterol Calculated 162 mg/dL (<130); Triglycerides 128 mg/dL (<150)
[2025-03-12 16:54] LABS: Red Blood Cell Folate 566 ng/mL RBC (>280)
== END 2025-03-09 07:11 | disposition home or self-care (01) ==
LOC: CHSLAB 07:13
PROVIDERS: PCP Internal Medicine; Visit Provider Internal Medicine
DX: M19.90 Unspecified osteoarthritis, unspecified site (principal); D64.9 Anemia, unspecified; E78.00 Pure hypercholesterolemia, unspecified; I10 Essential (primary) hypertension; E03.4 Atrophy of thyroid (acquired); D51.9 Vitamin B12 deficiency anemia, unspecified; N39.0 Urinary tract infection, site not specified; E78.2 Mixed hyperlipidemia
CPT/HCPCS: 36415; 80053; 80061; 81003; 82550; 82607; 82728; 82747; 83540; 84439; 84443; 85025

== ENCOUNTER 2025-07-12 08:15 | Outpatient (CLI) | payer OTHER, SELFPAY ==
[2025-07-12 09:21] LABS: Alanine Aminotransferase 18 U/L (6-50); Albumin Level 4.4 g/dL (3.5-5.1); Alkaline Phosphatase 65 U/L (38-126); Aspartate Amino Transferase 29 U/L (17-59); Bilirubin,Total 0.7 mg/dL (0.2-1.3); Blood Urea Nitrogen 19 mg/dL (9-20); Carbon Dioxide 27 mmol/L (22-30); Chloride 107 mmol/L (98-107); Cholesterol 229 mg/dL (0-200); Creatine Kinase 175 U/L (55-170); Estimated Glomerular Filt Rate > 60; Total Protein 7.2 g/dL (6.3-8.2); Triglycerides 146 mg/dL (<150)
[2025-07-12 09:27] LABS: Anion Gap 8 mmol/L (4-12); Calcium 9.7 mg/dL (8.4-10.2); Glucose 103 mg/dL (65-110); HDL Direct 36 mg/dL; Osmolality Calculated 296 mOsm/kg (285-295); Potassium 4.7 mmol/L (3.4-5.0); Sodium 142 mmol/L (137-145)
== END 2025-07-12 08:16 | disposition home or self-care (01) ==
LOC: CHSLAB 08:17
PROVIDERS: PCP Internal Medicine; Visit Provider Internal Medicine
DX: E78.2 Mixed hyperlipidemia (principal)
CPT/HCPCS: 36415; 80053; 80061; 82550